=== PATIENT | female | born 1945 | race Caucasian/White ===

== ENCOUNTER 2016-04-23 21:22 | Inpatient (IN) | payer OTHER, MEDICARE ==
[~2016-04-23] VITALS: Ht 165.1 cm; Wt 78.5 kg
[2016-04-23 21:27] VITALS: BP 108/51; PULSE 62; RESP 16; TEMP 98.2; O2SAT 95
[2016-04-23] MEDS ORDERED: HYDR25TA5 PO (21:48)
[2016-04-23] MEDS ORDERED: ASPI1TAB69 PO (21:48)
[2016-04-23] MEDS ORDERED: MULT1TAB84 PO (21:48)
[2016-04-23] MEDS ORDERED: PAXI30TA7 PO (21:48)
--- NOTE | 2016-04-23 21:50 | PD ---
HPI Chief Complaint: Injury Time Seen by Provider: 21:47 Travel History International Travel<30 days: No Contact w/Intl Traveler<30days: No Traveled to known affect area: No History of Present Illness HPI 71-year-old female presents to the emergency department for evaluation of left ankle foot pain that occurred just prior to arrival. Patient states she was dancing when she felt a pain in her left ankle. The pain caused her to fall. She denies hitting her head or losing consciousness. She denies any neck pain or back pain. No chest pain or abdominal pain. No vomiting. Patient denies taking anticoagulants or having any bleeding disorders. She's been unable to walk since it occurred. PFSH Past Medical History Depression: Yes Diabetes: Yes (NO MEDS) Patient Takes Glucophage: No Diminished Hearing: Yes Hypertension: Yes Immunizations Current: Yes Tetanus Vaccination: < 5 Years Influenza Vaccination: Yes ?: Not Tubal Ligation: Yes Past Surgical History Hysterectomy: Yes Other Surgery: Yes (DISECTOMY CARPAL JUAN DAVID) Social History Alcohol Use: Yes (DAILY 2) Tobacco Use: No Substance Use: No Allergies-Medications (Allergen,Severity, Reaction): Coded Allergies: Giuseppe (Verified Allergy, Severe, Anaphylaxis, 04/23/16) Reported Meds & Prescriptions Reported Meds & Active Scripts Active Reported Aspirin 81 Mg Tabdr 81 Mg PO DAILY Multivitamin Adults (Multiple Vitamins W/ Minerals) 1 Tab 1 Tab PO DAILY Paxil (Paroxetine HCl) 30 Mg Tab 30 Mg PO DAILY Hydrochlorothiazide 25 Mg Tab 25 Mg PO DAILY Review of Systems Except as stated in HPI: all other systems reviewed are Neg Physical Exam Narrative GENERAL: Well-developed well-nourished female patient, ambulatory. Afebrile. SKIN: Warm and dry. HEAD: Normocephalic. Atraumatic. EYES: No scleral icterus. No injection or drainage. NECK: Supple, trachea midline. No JVD or lymphadenopathy. CARDIOVASCULAR: Regular rate and rhythm without murmurs, gallops, or rubs. Bilateral pedal pulses 2+. Capillary refill less than 2 seconds to the digits of the left foot. RESPIRATORY: Breath sounds equal bilaterally. No accessory muscle use. Lungs sounds are clear to auscultation. GASTROINTESTINAL: Abdomen soft, non-tender, nondistended. MUSCULOSKELETAL: No cyanosis. Patient has swelling to the left medial ankle. She has tenderness to palpation. Patient has full sensation to the distal left upper extremity. BACK: Nontender without obvious deformity. No CVA tenderness. Patient has full rotation of the cervical spine without pain or stiffness. Data Data Last Documented VS Vital Signs Date Time Temp Pulse Resp B/P Pulse Ox O2 Delivery O2 Flow Rate FiO2 04/23/16 21:43 04/23/16 21:27 98.2 62 16 95 Room Air Orders Acetamin-Hydrocod 325-5 Mg ([place] 5-325 (04/23/16 22:30) Foot, Limited (2vws) (04/23/16 ) Ankle, Limited (Ap&Lat) (04/23/16 ) Complete Blood Count With Diff (04/23/16 22:50) Comprehensive Metabolic Panel (04/23/16 22:50) Act Partial Throm Time (Ptt) (04/23/16 22:50) Prothrombin Time / Inr (Pt) (04/23/16 22:50) MDM Medical Decision Making Medical Screen Exam Complete: Yes Emergency Medical Condition: Yes Medical Record Reviewed: Yes Interpretation(s) x-ray left ankle - CONCLUSION: Fracture subluxation of the left ankle. There are distal fibula and medial malleolus fractures. There is posterolateral subluxation of tibiotalar joint. x-ray left foot - no foot fracture Differential Diagnosis Fracture versus contusion versus sprain versus dislocation Narrative Course 71-year-old female presents to the emergency department for evaluation of left ankle and foot pain that occurred while dancing. She states the pain caused her to fall. She states she had the pain before falling. She denies any other injury. X-ray left foot and left ankle are ordered and pending. X-ray of the left foot shows no fracture x-ray of the left ankle shows fracture subluxation of the left ankle. There are distal fibula and medial malleolus fractures. There is posterolateral subluxation of tibiotalar joint. Dr. Gross, orthopedist [employer] consultant was paged. I gave report to Dr. Ramesh, who resumed care and disposition of patient. Masha Jordan Apr 23, 2016 21:50
[2016-04-23] MEDS ORDERED: ACETAMINOPHEN/HYDROcodone 325 MG/5 MG TAB PO ONE (22:30)
--- NOTE | 2016-04-23 22:45 | RADHPO ---
EXAM DATE/TIME: 04/23/2016 22:33 [facility] COMPARISON: No previous studies available for comparison. INDICATIONS : Trauma, fall. Left ankle pain. MEDICAL HISTORY : None. SURGICAL HISTORY : None. ENCOUNTER: Initial ACUITY: 1 day PAIN SCORE: 10/10 LOCATION: Left ankle FINDINGS: There is a steeply oblique, moderately comminuted fracture of the distal fibula with about one shaft width of lateral displacement. There is a fracture of the medial malleolus. The medial malleolus frac ture fragment continues to articulate with the talus but the rest of the tibiotalar joint is laterall y and posteriorly subluxed. CONCLUSION: Fracture subluxation of the left ankle. There are distal fibula and medial malleolus fractures. There is posterolateral subluxation of tibiotalar joint. Maulik Lerma MD on April 23, 2016 at 22:41 Board Certified Radiologist. This report was verified electronically.
--- NOTE | 2016-04-23 22:54 | RADHPO ---
EXAM DATE/TIME: 04/23/2016 22:34 [facility] COMPARISON: ANKLE LEFT LIMITED (AP&LAT), April 23, 2016, 22:33. INDICATIONS : Trauma, fall. Left foot pain. MEDICAL HISTORY : None. SURGICAL HISTORY : None. ENCOUNTER: Initial ACUITY: 1 day PAIN SCORE: 10/10 LOCATION: Left foot FINDINGS: Two view examination of the left foot demonstrates no soft tissue swelling, dislocation, or fracture. The calcaneus is intact. Bony mineralization is normal. CONCLUSION: No foot fracture demonstrated. Maulik Lerma MD on April 23, 2016 at 22:52 Board Certified Radiologist. This report was verified electronically.
[2016-04-23] MEDS ORDERED: PROPOFOL 200 MG/20 ML AMP IV ONE (23:15)
[2016-04-23 23:20] VITALS: BP 127/74; PULSE 62; RESP 18; O2SAT 96; O2SAT 99
--- NOTE | 2016-04-23 23:34 | PD ---
Data Data Last Documented VS Vital Signs Date Time Temp Pulse Resp B/P Pulse Ox O2 Delivery O2 Flow Rate FiO2 04/23/16 21:43 04/23/16 21:27 98.2 62 16 95 Room Air Orders Acetamin-Hydrocod 325-5 Mg ([place] 5-325 (04/23/16 22:30) Foot, Limited (2vws) (04/23/16 ) Ankle, Limited (Ap&Lat) (04/23/16 ) Complete Blood Count With Diff (04/23/16 22:50) Comprehensive Metabolic Panel (04/23/16 22:50) Act Partial Throm Time (Ptt) (04/23/16 22:50) Prothrombin Time / Inr (Pt) (04/23/16 22:50) Propofol 200 Mg/20 Ml Inj (Diprivan 200 (04/23/16 23:15) Ankle, Limited (Ap&Lat) (04/23/16 ) MDM Supervised Visit with QUEENIE: No Narrative Course I was asked by Dr. Ramesh to perform procedural sedation for left ankle fracture dislocation. See procedure note. Procedures Procedure Narrative Procedural sedation: After the risks and benefits were discussed the following procedure was performed: MODERATE SEDATION: The patient was placed on a lead printer and pulse oximetry. An ambu bag and suction was immediately available at bedside. The patient was monitored by the nurse. Oxygen saturation , heart rate and blood pressure were monitored. Procedural sedation was acheived using 50 mg of propofol IV. The patient was observed until awake and alert. Procedural Sedation time in attendance was 20 minutes. Joshua Murillo MD Apr 23, 2016 23:34
[2016-04-23 23:39] LABS: AUTOMATED NEUTROPHIL # 4.1 TH/MM3 (1.8-7.7); BASOPHIL % 0.5 % (0.0-2.0); EOSINOPHIL # 0.1 TH/MM3 (0-0.4); EOSINOPHIL % 2.3 % (0.0-4.0); HEMATOCRIT 43.3 % (35.0-46.0); HEMO FLAGS DIFF FINAL; LYMPH % 26.7 % (9.0-44.0); LYMPHOCYTE # 1.7 TH/MM3 (1.0-4.8); MEAN CELL VOLUME 92.1 FL (80.0-100.0); MEAN CORPUSCULAR HEMOGLOBIN 32.1 PG (27.0-34.0); MEAN CORPUSCULAR HGB CONC 34.8 % (32.0-36.0); MONO % 8.5 % (0.0-8.0); PLATELET COUNT 137 TH/MM3 (150-450); RED CELL DISTRIBUTION WIDTH 12.2 % (11.6-17.2); WHITE BLOOD COUNT 6.4 TH/MM3 (4.0-11.0)
[2016-04-23 23:45] LABS: CHLORIDE 104 MEQ/L (98-107); POTASSIUM 3.5 MEQ/L (3.5-5.1); SODIUM (NA) 141 MEQ/L (136-145)
--- NOTE | 2016-04-23 23:48 | RADHPO ---
EXAM DATE/TIME: 04/23/2016 23:38 [facility] COMPARISON: FOOT LEFT LIMITED (2VWS), April 23, 2016, 22:34. ANKLE LEFT LIMITED (AP&LAT), April 23, 2016, 22:33. INDICATIONS : Post reduction, left ankle. MEDICAL HISTORY : None. SURGICAL HISTORY : None. ENCOUNTER: Initial ACUITY: 1 day PAIN SCORE: 10/10 LOCATION: Left ankle FINDINGS: Two view exam was performed of the left ankle. There is much better alignment of the ankle mortise wi th just widening medially along the talar dome. Oblique fibular fracture is much better aligned as we ll CONCLUSION: Much better alignment of the fractures Bon Johnson MD on April 23, 2016 at 23:45 Board Certified Radiologist. This report was verified electronically.
[2016-04-23 23:49] LABS: ANION GAP 12 MEQ/L (5-15); BICARBONATE 24.7 MEQ/L (21.0-32.0); BLOOD UREA NITROGEN 14 MG/DL (7-18)
--- NOTE | 2016-04-23 23:49 | PD ---
Physical Exam Date Seen by Provider: Apr 23, 2016 Time Seen by Provider: 23:00 Narrative accepted in transfer of care from Masha Jordan PA-C GENERAL: Well-nourished female in no acute distress no respiratory distress GCS 15 SKIN: Warm and dry. HEAD: Normocephalic. EYES: No scleral icterus. No injection or drainage. NECK: Supple, trachea midline. No JVD or lymphadenopathy. CARDIOVASCULAR: Regular rate and rhythm without murmurs, gallops, or rubs. RESPIRATORY: Breath sounds equal bilaterally. No accessory muscle use. GASTROINTESTINAL: Abdomen soft, non-tender, nondistended. MUSCULOSKELETAL: No cyanosis, left ankle medial anterior deformity with mild discoloration and decreased palpable pulse readily detected with Doppler capillary refill is mildly delayed there is no open wound or laceration superficial abrasion is noted to the dorsal lateral aspect. BACK: Nontender without obvious deformity. No CVA tenderness. Data Data Last Documented VS Vital Signs Date Time Temp Pulse Resp B/P Pulse Ox O2 Delivery O2 Flow Rate FiO2 04/23/16 21:43 04/23/16 21:27 98.2 62 16 95 Room Air Orders Acetamin-Hydrocod 325-5 Mg ([place] 5-325 (04/23/16 22:30) Foot, Limited (2vws) (04/23/16 ) Ankle, Limited (Ap&Lat) (04/23/16 ) Complete Blood Count With Diff (04/23/16 22:50) Comprehensive Metabolic Panel (04/23/16 22:50) Act Partial Throm Time (Ptt) (04/23/16 22:50) Prothrombin Time / Inr (Pt) (04/23/16 22:50) Propofol 200 Mg/20 Ml Inj (Diprivan 200 (04/23/16 23:15) Ankle, Limited (Ap&Lat) (04/23/16 ) MDM Medical Record Reviewed: Yes Supervised Visit with QUEENIE: Yes Interpretation(s) Last Impressions Foot X-Ray 04/23/16 0000 Signed Impressions: Service Date/Time: Saturday, April 23, 2016 22:34 - CONCLUSION: No foot fracture demonstrated. Maulik Lerma MD Ankle X-Ray 04/23/16 0000 Signed Impressions: Service Date/Time: Saturday, April 23, 2016 22:33 - CONCLUSION: Fracture subluxation of the left ankle. There are distal fibula and medial malleolus fractures. There is posterolateral subluxation of tibiotalar joint. Maulik Lerma MD Differential Diagnosis fracture subluxation dislocation neurovascular injury Narrative Course accepted in transfer of care from [place] Procedures Procedure Narrative After obtaining informed consent for procedural sedation and closed reduction of the left ankle fracture subluxation/dislocation; after obtaining adequate sedation with gentle distraction traction and medial flexion reduction was successfully achieved and dorsalis pedis pulse was readily palpable as well as Dopplerable with less than 2 second capillary refill to digits; sugar-tong splint with ice cuff applied. Post reduction x-ray was obtained with improved alignment noted. Physician Communication Physician Communication case discussed with screed person orthopedist, Dr Iqbal, admit to medicine with consult to Dr Hernandez in AM for surgical repair; call placed to medicine service [facility] MD Dr Ghosh Diagnosis Primary Impression: Trimalleolar fracture of ankle, closed Qualified Code: S82.852A - Trimalleolar fracture of ankle, closed, left, initial encounter Admitting Information Admitting Physician Requests: Admit Josselin Ramesh MD Apr 23, 2016 23:49
[2016-04-23 23:50] VITALS: BP 121/63; PULSE 62; RESP 18; O2SAT 97
[2016-04-23 23:50] LABS: APTT (PATIENT) 25.2 SEC (24.3-30.1); PROTHROMBIN TIME - PATIENT 10.7 SEC (9.8-11.6)
[2016-04-23 23:52] LABS: ALT (GPT) 53 U/L (10-53); AST (GOT) 29 U/L (15-37); GLOMERULAR FILTRATION RATE 61 ML/MIN (>89)
[2016-04-23 23:53] LABS: TOTAL BILIRUBIN ADULT 0.3 MG/DL (0.2-1.0)
[2016-04-23 23:54] LABS: ALKALINE PHOSPHATASE 88 U/L (45-117)
[2016-04-24] VITALS (11 sets, daily range): BP systolic 110–152; BP diastolic 58–87; PULSE 58–84; RESP 15–20; TEMP 95.7–98.3; O2SAT 94–98
[2016-04-24] MEDS ORDERED: BISACODYL 10 MG SUPP PR PRN
[2016-04-24] MEDS ORDERED: SODIUM CHLORIDE 0.9% FLUSH 5 ML FLUSH FLUSH PRN
[2016-04-24] MEDS ORDERED: ACETAMINOPHEN 325 MG TAB PO PRN
[2016-04-24] MEDS ORDERED: ONDANSETRON HCL 4 MG/2 ML VIAL IVP PRN
[2016-04-24] MEDS ORDERED: SODIUM CHLORIDE 0.9% FLUSH 5 ML FLUSH IVF PRN
[2016-04-24] MEDS ORDERED: MORPHINE SULFATE 4 MG/ML INJ IV PRN
[2016-04-24] MEDS ORDERED: PILL SPLITTER OTHER PRN (00:15)
[2016-04-24] MEDS: SODIUM CHLOR 0.9% 1000 ML INJ 1,000 ML IV SCH ×3 (00:58→19:52)
[2016-04-24] MEDS: ACETAMINOPHEN/HYDROcodone 325 MG/5 MG TAB PO PRN ×3 (00:58→18:52)
--- NOTE | 2016-04-24 02:07 | RADHPO ---
EXAM DATE/TIME: 04/24/2016 01:58 [facility] COMPARISON: No previous studies available for comparison. INDICATIONS : Evaluate for pneumonia, pneumothorax or communicable disease. Pre-op, left ankle surgery. MEDICAL HISTORY : None. SURGICAL HISTORY : None. ENCOUNTER: Initial ACUITY: 1 day PAIN SCORE: 0/10 LOCATION: Bilateral chest FINDINGS: A single view of the chest demonstrates the lungs to be symmetrically aerated without evidence of mas s, infiltrate or effusion. The cardiomediastinal contours are unremarkable. Osseous structures are intact. CONCLUSION: Normal examination. Bon Johnson MD on April 24, 2016 at 2:06 Board Certified Radiologist. This report was verified electronically.
[2016-04-24] MEDS ORDERED: INSULIN HUMAN REGULAR 1,000 UNITS/10 ML VIAL SQ PRN (04:15)
[2016-04-24] MEDS ORDERED: VANCOMYCIN HCL 1000 MG VIAL ONE (07:12)
[2016-04-24] MEDS ORDERED: GENTAMICIN SULFATE 80 MG/2 ML VIAL ONE (07:12)
[2016-04-24] MEDS ORDERED: ceFAZolin INJ 1,000 MG VIAL ONE (07:12)
[2016-04-24] MEDS ORDERED: BUPIVACAINE/EPINEPHRINE 0.25% PF 30 ML VIAL ONE (07:12)
--- NOTE | 2016-04-24 07:15 | PD.ORT.PN ---
Subjective Subjective Remarks At [facility] [employer] last night. Was dancing and had a slip and fall. She did not understand or recall how she fell. She did not hit her head and did not lose consciousness. Left ankle pain Objective Vitals Vital Signs Date Time Temp Pulse Resp B/P Pulse Ox O2 Delivery O2 Flow Rate FiO2 04/24/16 03:35 60 20 110/60 98 Nasal Cannula 2 04/24/16 03:05 59 19 118/58 97 Nasal Cannula 04/24/16 02:20 58 16 131/65 98 Nasal Cannula 04/24/16 01:58 18 04/24/16 00:50 58 18 125/62 96 Nasal Cannula 2 04/24/16 00:30 64 18 145/85 97 Nasal Cannula 2 04/24/16 00:10 58 20 119/65 96 Nasal Cannula 2 04/23/16 23:50 62 18 121/63 97 Nasal Cannula 2 04/23/16 23:26 19 04/23/16 23:20 62 18 127/74 96 Room Air 04/23/16 23:20 99 2.00 04/23/16 23:20 99 Nasal Cannula 2.00 04/23/16 23:20 99 04/23/16 23:20 96 Room Air 04/23/16 21:43 04/23/16 21:27 98.2 62 16 108/51 95 Room Air I/O 04/23/16 04/23/16 04/23/16 04/24/16 04/24/16 04/24/16 06:59 14:59 22:59 06:59 14:59 22:59 Output Total 800 ml Balance -800 ml Output Urine Total 800 ml Result Diagram: 04/23/16 2300 04/23/16 2300 Other Results Laboratory Tests Test 04/23/16 23:00 Prothrombin Time 10.7 SEC (9.8-11.6) Prothromb Time International 1.0 RATIO Ratio Imaging Last 24 hours Impressions Chest X-Ray 04/24/16 0000 Signed Impressions: Service Date/Time: Sunday, April 24, 2016 01:58 - CONCLUSION: Normal examination. Bon Johnson MD Objective Remarks Bilateral upper extremities: Full range of motion neurovascularly intact Right lower extremity: Full range of motion with intact distal pulses. Chronic neuropathy with some decreased sensation. No pain with range of motion of foot Left lower extremity: No pain with range of motion of hip or knee. She has decreased sensation distally in all her toes which are consistent with her chronic neuropathy. Splint and ice cuff intact Assessment & Plan Assessment and Plan Left trimalleolar ankle fracture Nothing by mouth Sign consents Surgery this morning with Dr. Hernandez We'll need to evaluate over the next few days if she is able to go home or go to rehabilitation. Rehabilitation likely due to 3 steps up to double wide home. She also lives alone ANGELIKA ZAVALA PA-C Apr 24, 2016 07:14
[2016-04-24] MEDS ORDERED: MIDAZOLAM HCL 2 MG/2 ML VIAL ONE (07:19)
[2016-04-24] MEDS ORDERED: fentaNYL CITRATE 250 MCG/5 ML AMP ONE (07:19)
[2016-04-24] MEDS ORDERED: FAMOTIDINE 20 MG/2 ML VIAL ONE (07:19)
[2016-04-24] MEDS ORDERED: DEXAMETHASONE SOD PHOS 4 MG/ML VIAL ONE (07:19)
[2016-04-24] MEDS ORDERED: METOCLOPRAMIDE HCL 10 MG/2 ML VIAL ONE (07:19)
[2016-04-24] MEDS ORDERED: MORPHINE SULFATE 4 MG/ML INJ IV PUSH PRN (08:45)
[2016-04-24] MEDS ORDERED: Post-op Orders (for Pharmacy) MISC XX ONE (08:45)
--- NOTE | 2016-04-24 08:49 | PD.OP ---
cc: Nayan Avalos MD Operative Report Date of Surgery: Apr 24, 2016 Preoperative Diagnosis: Left ankle trimalleolar fracture Postoperative Diagnosis: Procedure: ORIF left ankle medial malleolus and lateral malleolus fractures Anesthesia: Gen. Surgeon: Nayan Avalos Sludge Filtration Attendant(s): AZAR Busby PA-C The surgical procedure was assisted by my physician chef's assistant. My P.A. presence was necessary throughout this case for the manipulation and positioning of the surgical extremity. My P.A. was assisting me throughout the duration of this procedure. The skill set of a physician chef's assistant was medically necessary to complete this procedure. During the surgical case the blending technician was working at the back table and the physician chef's assistant was directly assisting me. Operation and Findings: Patient was seen and evaluated preoperatively and found to have a displaced left ankle trimalleolar fracture. Informed consent was obtained after a detailed discussion of risk and benefits of surgery. The operative site was marked. Patient was brought to the OR, placed on the OR table, and given IV sedation and general endotracheal anesthesia. IV antibiotics were given preoperatively. A timeout procedure was performed. The left leg was prepped with alcohol followed by Hibiclens and draped in the usual sterile fashion. Attention was turned towards the distal fibula. A four-inch incision was made over the distal fibula. The subcutaneous tissue was dissected with Bovie. The fracture site was visualized. The fracture site was cleaned with curets. The fracture was now reduced. The fracture keyed into anatomic alignment. K-wires were used to h old provisional fixation. A lag screw was placed to compress fracture. A Synthes plate was selected. The plate was provisionally held to bone with K-wires. 3.5 cortical screws were used to compress the plate to bone. Multiple screws were placed above and below the fracture. Next attention was turned towards the medial malleolus. The medial malleolus supposed through a 3 cm incision. Saphenous vein was retracted. Fracture was visualized. Fracture was cleaned with curettes. Fracture was now reduced and keyed into anatomic alignment. K wires were used to hold provisional fixation. 2 guidepins for the 4.0 cannulated screws were placed in a retrograde fashion across the fracture. Fluoroscopy was used to confirm guidepin placement. Cannulated drill was placed over the guidepin. 2 appropriate length screws were now placed. Good compression was applied. Fluoroscopy confirmed well aligned fracture with well-placed hardware. Next, attention was turned to the syndesmosis. The syndesmosis was stressed. There was no widening of the syndesmosis with external rotation of the ankle. The posterior malleolus fracture was also visualized. This was a near anatomic alignment. The posterior malleolus fracture was relatively small. Incisions were thoroughly irrigated. The subcutaneous tissue was closed with 3-0 PDS and the skin was closed with 3-0 nylon. Sterile dressings were applied. A well molded well-padded splint was applied. The patient was transferred to Recovery in stable condition. Needle and sponge counts were correct. Nayan Avalos MD Apr 24, 2016 08:49
[2016-04-24] MEDS ORDERED: SODIUM CHLORIDE 0.9% FLUSH 5 ML FLUSH IVF SCH (09:00)
[2016-04-24] MEDS ORDERED: WALKER/ADULT/FO1 MIS (09:27)
[2016-04-24] MEDS ORDERED: HYDR-3288 PO (09:27)
[2016-04-24] MEDS ORDERED: *morphine SULFATE 8 MG/ML PERIprocedure ONLY ONE (09:36)
[2016-04-24] MEDS ORDERED: *LABETALOL HCL 100 MG/20 ML VIAL PERIprocedural Use ONLY ONE (09:41)
--- NOTE | 2016-04-24 09:54 | MB ---
cc: STACI MARTINEZ DATE OF CONSULTATION: 04/24/2016 REASON FOR CONSULTATION Left ankle trimalleolar fracture. HISTORY OF PRESENT ILLNESS Radha is a 71-year-old female who was dancing at her [place] [employer] party. She twisted her ankle. She had a fall. She had immediate left ankle pain and deformity. She presented to the emergency room where x-rays revealed a displaced left ankle trimalleolar fracture. She is currently awake and alert on the orthopedic floor. Her only complaint is her left ankle. Pain is worse with movement and is improved with rest. She denies dizziness, syncope or loss of consciousness. PAST MEDICAL HISTORY ILLNESSES 1. Depression. 2. Diabetes. 3. Hypertension. SURGERIES 1. Carpal tunnel release. 2. Lumbar diskectomy. 3. Hysterectomy. ALLERGIES DIOVAN. MEDICATIONS 1. Aspirin. 2. Multivitamin. 3. Paxil. 4. Hydrochlorothiazide. SOCIAL HISTORY Patient does drink two glasses of wine a day. She denies tobacco or drug use. REVIEW OF SYSTEMS The patient denies headache, visual changes, neck pain, chest pain, shortness of breath, abdominal pain, nausea, vomiting, recent weight loss or numbness and tingling of extremities. She complains of left ankle pain. She does have some chronic back pain. She also has some diminished sensation in both feet secondary to previous lumbar spine problem. PHYSICAL EXAMINATION GENERAL: The patient is a thin 71-year-old female, in no acute distress. She is awake and alert. She is alert and oriented. x3. VITAL SIGNS: Temperature 98.1, pulse 62, respirations 18, blood pressure 121/71, O2 sat 95% on 2 liters nasal cannula. HEAD: The patient is normocephalic. Pupils are equal. NECK: Soft, nontender. Trachea is midline. CHEST: Lungs are clear. HEART: The patient has regular rate and rhythm. ABDOMEN: Soft, nontender, nondistended. EXTREMITIES: Examination of bilateral upper extremities reveals no pain with shoulder, elbow, wrist motion. She has intact sensation in all fingers. He has good cap refill in all fingers. Skin is intact. Radial pulses are palpable. Customer Care Specialist strength is +5. Examination of right leg reveals no pain with hip, knee or ankle motion. Skin is intact. Dorsalis pedis pulse is intact. Sensation is intact. Examination of left leg reveals no pain with hip or knee motion. She is diffusely tender around her ankle. She has mild swelling present. Skin is intact. She has good cap refill in the foot. X-RAYS X-rays of left ankle were reviewed, x-rays reveal a displaced left ankle trimalleolar fracture. IMPRESSION 1. Borderline diabetes. 2. Hypertension. 3. Displaced left ankle fracture. PLAN Treatment options were discussed with the patient. At this point I would recommend open reduction, internal fixation of left ankle. Risks of surgery include bleeding, infection, injuries to arteries, nerves and blood vessels, nonunion, malunion, painful hardware as well as medical complications including blood clot, stroke, heart attack and . She understands that she will need to be strictly non-weightbearing. All questions were answered. I will plan on surgery today. A mid-level provider in my office, nurse practitioner or PA, may see this patient on a follow-up basis and continue to implement the objective of this plan including: Starting or adjusting medications, injections of muscle, tendon, bursa or joints, cast application, orthotic or brace application, physical therapy, further radiographic studies including x-ray, MRI, CT, ultrasounds or bone scan, vascular studies, neurologic studies, or other specialist consultations, and proceeding with surgical management as appropriate. MD VERA Mckeon/LAURA /8:52 AM /9:27 AM
[2016-04-24] MEDS ORDERED: DO NOT ADM ANY ANTICOAGULANT DRUGS XX PRN (10:00)
[2016-04-24] MEDS: LACTATED RINGER'S 1000 ML IV SCH (11:00)
[2016-04-24] MEDS: SODIUM CHLORID 0.9% 500 ML IV SCH (11:00)
--- NOTE | 2016-04-24 11:41 | RADRPT ---
EXAM DATE/TIME: 04/24/2016 08:10 [facility] COMPARISON: ANKLE LEFT LIMITED (AP&LAT), April 23, 2016, 23:38. INDICATIONS : ORIF left ankle. MEDICAL HISTORY : None. SURGICAL HISTORY : None. ENCOUNTER: Subsequent ACUITY: 2 days PAIN SCORE: Non-responsive. LOCATION: Left ankle. FINDINGS: 4 spot intraoperative fluoroscopic views of the left ankle demonstrate 2 screws traversing the medial malleolus and lateral plate and screw fixation of the distal fibula with anatomic alignment at the a nkle mortise. CONCLUSION: Postoperative changes. Devaughn Barnett MD on April 24, 2016 at 11:39 Board Certified Radiologist. This report was verified electronically.
[2016-04-24] MEDS ORDERED: ONDANSETRON HCL 4 MG/2 ML VIAL IV PUSH ONE (12:00)
[2016-04-24] MEDS ORDERED: PROPOFOL 200 MG/20 ML AMP IV ONE (12:00)
--- NOTE | 2016-04-24 13:06 | EKG ---
Date Performed: 04/24/2016 Time Performed: 01:44:14 PTAGE: 71 years EKG: Sinus bradycardia. Right bundle branch block Abnormal ECG NO PREVIOUS TRACING DOCTOR: Katelyn Elise Interpretating Date/Time 04/24/2016 13:05:54
--- NOTE | 2016-04-24 13:26 | EKG ---
Date Performed: 04/24/2016 Time Performed: 05:46:04 PTAGE: 71 years EKG: Sinus rhythm . Right bundle branch block Since previous tracing, no significant change noted Abnormal ECG PREVIOUS TRACING : 04/24/2016 01.44 DOCTOR: Katelyn Elise Interpretating Date/Time 04/24/2016 13:25:22
[2016-04-24] MEDS: MULTIVITAMINS/MINERALS THERAPEUTIC TAB PO SCH (14:01)
[2016-04-24] MEDS: PARoxetine HCL 20 MG TAB PO SCH (14:01)
[2016-04-24] MEDS: SODIUM CHLORIDE 0.9% FLUSH 5 ML FLUSH FLUSH SCH ×2 (14:04→21:00)
--- NOTE | 2016-04-24 14:41 | HHI.HP ---
cc: Dr. Jana Haque [facility] Primary [facility] Physician Jana Haque Admission Diagnosis L trimalleolar fracture subluxation/dislocation Diagnoses: Chief Complaint: fall, left ankle pain Travel History International Travel<30 Days: No Contact w/Intl Traveler <30 Da: No Traveled to Known Affected Are: No History of Present Illness 71-year-old female with history of HTN, diet-controlled diabetes, depression, presents with left ankle pain after a fall on 04/23/16. Patient is now seen after surgery, is drowsy, but is able to stay awake to answer questions. She reports last night she was at a [employer], had 2 glasses of wine, was dancing, then felt a pain in her left ankle that caused her to fall to the floor. She states she normally dances barefoot however she bought new slippers and must have slipped and twisted her ankle. She has been unable to ambulate since then. She denies any syncope, did not hit her head. She denies any other medical complaints including no fevers/chills, headache, lightheadedness, dizziness, chest pain, shortness of breath, abdominal or urinary complaints. Upon arrival to the ER, left ankle x-ray showed fracture subluxation, distal fibula and medial malleolus fractures, posterolateral subluxation of the tibiotalar joint. In the ER, moderate sedation was given for closed reduction. Postreduction x-rays showed improvement of the alignment. Orthopedics was consulted, Dr. Avalos performed ORIF of fractures this morning 04/24/16. As above , patient is now seen post surgery, drowsy but overall doing well. Review of Systems ROS Limitations: Clinical Condition Constitutional: DENIES: Fatigue, Dizziness Endocrine: DENIES: Polydipsia, Polyuria, Polyphagia Eyes: DENIES: Blurred vision, Double Vision Ears, nose, mouth, throat: DENIES: Throat pain, Running Nose, Odynophagia Respiratory: DENIES: Cough, Shortness of breath Cardiovascular: DENIES: Chest pain, Palpitations, Syncope, Dyspnea on Exertion , Lower Extremity Edema Gastrointestinal: DENIES: Abdominal pain, Constipation, Diarrhea, Nausea, Vomiting Genitourinary: DENIES: Urinary frequency, Urgency, Dysuria Musculoskeletal: COMPLAINS OF: Joint pain, Joint Swelling, DENIES: Back pain, Neck pain Integumentary: DENIES: Pruritus, Rash Hematologic/lymphatic: DENIES: Bruising, Lymphadenopathy Immunologic/allergic: DENIES: Eczema, Urticaria Neurologic: DENIES: Abnormal gait, Headache, Localized weakness Psychiatric: DENIES: Anxiety, Depression Past Family Social History Past Medical History Hypertension Depression Diet controlled diabetes Past Surgical History Lumbar spine discectomy 20 years ago Hysterectomy Trigger finger surgery Bilateral carpal tunnel release Reported Medications Aspirin 81 Mg Tabdr 81 Mg PO DAILY Multivitamin Adults (Multiple Vitamins W/ Minerals) 1 Tab 1 Tab PO DAILY Paxil (Paroxetine HCl) 30 Mg Tab 30 Mg PO DAILY Hydrochlorothiazide 25 Mg Tab 25 Mg PO DAILY Allergies: Coded Allergies: Diovan (Verified Allergy, Severe, Anaphylaxis, 04/23/16) Active Ordered Medications Current Medications Medications (Trade) Dose Ordered Sig/Aarti Route Start Time Stop Time Status Last Admin (NS 1000 ml Inj) 1,000 ml @ 100 mls/hr Q10H IV 04/23/16 23:52 04/24/16 00:58 (NS Flush) 2 ml UNSCH PRN FLUSH 04/24/16 00:00 (NS Flush) 2 ml BID FLUSH 04/24/16 09:00 04/24/16 14:04 (Zofran Inj) 4 mg Q6H PRN IVP 04/24/16 00:00 (Dulcolax Supp) 10 mg DAILY PRN DC 04/24/16 00:00 (Tylenol) 650 mg Q6H PRN PO 04/24/16 00:00 ([place] 5-325 Mg) 1 tab Q4H PRN PO 04/24/16 00:00 04/24/16 05:35 (Morphine Inj) 2 mg Q3H PRN IV 04/24/16 00:00 04/24/16 03:28 (Theragran M Tab) 1 tab DAILY PO 04/24/16 09:00 04/24/16 14:01 (Paxil) 30 mg DAILY PO 04/24/16 09:00 04/24/16 14:01 Miscellaneous 1 ea 1 ea UNSCH PRN OTHER 1/1/17 00:15 Lactated Ringer's 1,000 ml @ 30 mls/hr Q24H IV 04/24/16 11:00 Sodium Chloride 500 ml @ 30 mls/hr [id number] IV 04/24/16 11:00 04/25/16 10:59 (Ancef 2 Gm Premix) 50 ml @ 100 mls/hr Q8H IV 04/24/16 15:00 04/24/16 15:29 ([place] 7.5-325 Mg) 1 tab Q4H PRN PO 04/24/16 08:45 ([place] 7.5-325 Mg) 2 tab Q6H PRN PO 04/24/16 08:45 (Morphine Inj) 4 mg Q3H PRN IV PUSH 04/24/16 08:45 Miscellaneous Information ALL NURSING DEPARTME... UNSCH PRN XX 04/24/16 10:00 04/25/16 09:59 Family History Mother with diabetes, 3 years ago Father in his 70s due to "organ failure" Social History Prior tobacco use, quit 30 years ago Drinks 2 glasses of wine nightly Denies illicit drug use Lives alone in a "double wide", has to go up a few stairs Physical Exam Vital Signs Vital Signs Date Time Temp Pulse Resp B/P Pulse Ox O2 Delivery O2 Flow Rate FiO2 04/24/16 10:37 96.3 84 15 144/63 95 04/24/16 09:45 98.7 90 14 137/70 95 Nasal Cannula 3 04/24/16 09:41 82 14 128/67 95 04/24/16 09:30 86 14 179/87 97 Nasal Cannula 3 04/24/16 09:16 98.9 87 14 177/91 97 Nasal Cannula 3 04/24/16 06:55 98.3 67 17 135/62 96 04/24/16 04:00 98.1 62 18 121/71 95 04/24/16 03:35 60 20 110/60 98 Nasal Cannula 2 04/24/16 03:05 59 19 118/58 97 Nasal Cannula 04/24/16 02:20 58 16 131/65 98 Nasal Cannula 04/24/16 01:58 18 04/24/16 00:50 58 18 125/62 96 Nasal Cannula 2 04/24/16 00:30 64 18 145/85 97 Nasal Cannula 2 04/24/16 00:10 58 20 119/65 96 Nasal Cannula 2 04/23/16 23:50 62 18 121/63 97 Nasal Cannula 2 04/23/16 23:26 19 04/23/16 23:20 62 18 127/74 96 Room Air 04/23/16 23:20 99 2.00 04/23/16 23:20 99 Nasal Cannula 2.00 04/23/16 23:20 99 04/23/16 23:20 96 Room Air 04/23/16 21:43 04/23/16 21:27 98.2 62 16 108/51 95 Room Air Physical Exam GENERAL: Well-nourished, well-developed pleasant female patient in NAD. Drowsy post surgery. SKIN: Warm and dry. No rash. HEAD: Normocephalic. Atraumatic. EYES: Pupils equal and round. No scleral icterus. No injection or drainage. ENT: No nasal bleeding or discharge. Mucous membranes pink and moist. NECK: Supple. Trachea midline. CARDIOVASCULAR: Regular rate and rhythm. S1, S2 noted. No murmur appreciated. RESPIRATORY: No accessory muscle use. Clear to auscultation. Breath sounds equal bilaterally. GASTROINTESTINAL: Abdomen soft, non-tender, nondistended. Normoactive bowel sounds x4. MUSCULOSKELETAL: No obvious deformities. LLE splint in place post surgery, brisk capillary refill. NEUROLOGICAL: Awake and alert. No obvious cranial nerve deficits. Motor grossly within normal limits. Moving all extremities spontaneously. Normal speech. PSYCHIATRIC: Appropriate mood and affect; insight and judgment normal. Laboratory Laboratory Tests Test 04/23/16 23:00 White Blood Count 6.4 Red Blood Count 4.70 Hemoglobin 15.1 Hematocrit 43.3 Mean Corpuscular Volume 92.1 Mean Corpuscular Hemoglobin 32.1 Mean Corpuscular Hemoglobin 34.8 Concent Red Cell Distribution Width 12.2 Platelet Count 137 Mean Platelet Volume 8.9 Neutrophils (%) (Auto) 62.0 Lymphocytes (%) (Auto) 26.7 Monocytes (%) (Auto) 8.5 Eosinophils (%) (Auto) 2.3 Basophils (%) (Auto) 0.5 Neutrophils # (Auto) 4.1 Lymphocytes # (Auto) 1.7 Monocytes # (Auto) 0.5 Eosinophils # (Auto) 0.1 Basophils # (Auto) 0.0 CBC Comment DIFF FINAL Differential Comment Prothrombin Time 10.7 Prothromb Time International 1.0 Ratio Activated Partial 25.2 Thromboplast Time Sodium Level 141 Potassium Level 3.5 Chloride Level 104 Carbon Dioxide Level 24.7 Anion Gap 12 Blood Urea Nitrogen 14 Creatinine 0.91 Estimat Glomerular Filtration 61 Rate Random Glucose 163 Calcium Level 8.7 Total Bilirubin 0.3 Aspartate Amino Transf 29 (AST/SGOT) Alanine Aminotransferase 53 (ALT/SGPT) Alkaline Phosphatase 88 Total Protein 7.4 Albumin 3.8 Result Diagram: 04/23/16 2300 04/23/16 2300 Imaging Last Impressions Chest X-Ray 04/24/16 0000 Signed Impressions: Service Date/Time: Sunday, April 24, 2016 01:58 - CONCLUSION: Normal examination. Bon Johnson MD Ankle X-Ray 04/24/16 0000 Signed Impressions: Service Date/Time: Sunday, April 24, 2016 08:10 - CONCLUSION: Postoperative changes. Devaughn Barnett MD Foot X-Ray 04/23/16 0000 Signed Impressions: Service Date/Time: Saturday, April 23, 2016 22:34 - CONCLUSION: No foot fracture demonstrated. Maulik Lerma MD Assessment and Plan Problem List: (1) Trimalleolar fracture of ankle, closed ICD Code: S82.853A Status: Acute (2) HTN (hypertension) ICD Code: I10 Status: Chronic (3) Diet-controlled diabetes mellitus ICD Code: E11.9 Status: Chronic (4) Depression ICD Code: F32.9 Status: Chronic Assessment and Plan 71-year-old female with history of HTN, diet-controlled diabetes, depression, presents with left ankle pain after a fall on 04/23/16 Left Trimalleolar Ankle Fracture: s/p fall on 04/23. Left ankle x-ray showed fracture subluxation, distal fibula and medial malleolus fractures, posterolateral subluxation of the tibiotalar joint. In the ER, moderate sedation was given for closed reduction. Ortho consulted, ORIF of fractures done today 04/[address] Avalos. Ortho recommending NWB on LLE. Needs PT/safety eval prior to discharge. Patient needs to go up few steps at home. May need rehab placement. Defer DVT prophylaxis to surgical team. Diet Controlled Diabetes: not on medications. Check HgbA1c. Monitor Accu-cheks and cover with SSI for now. Diabetic diet. Hypertension: chronic, BP fairly well controlled. Continue patient's HCTZ. Depression: chronic, continue patient's Paxil. DVT Prophylaxis: per surgical team. Written by Nereyda Gonzalez, acting as scribe for Dr. Ruffin on 04/24/16 at 11:05. The documentation accurately reflects the work performed [id number] by me, Dr. Ruffin on 04/24/16 at 11:05. Code Status Full Code Discussed Condition With Patient, RN Physician Certification 2 Midnight Certification Type: Admission for Inpatient Services Order for Inpatient Services The services are ordered in accordance with Medicare regulations or non- Medicare payer requirements, as applicable. In the case of services not specified as inpatient-only, they are appropriately provided as inpatient services in accordance with the 2-midnight benchmark. Estimated LOS (days): 2 days is the estimated time the patient will need to remain in the hospital, assuming treatment plan goals are met and no additional complications. Post-Hospital Plan: Not yet determined Problem Qualifiers (1) Trimalleolar fracture of ankle, closed: Qualified Code: S82.852A - Trimalleolar fracture of ankle, closed, left, initial encounter Nereyda Gonzalez PA-C Apr 24, 2016 14:41 Claudio Ruffin MD Apr 24, 2016 23:16
[2016-04-24] MEDS ORDERED: GLUCAGON 1 MG/ML VIAL OTHER PRN (14:45)
[2016-04-24] MEDS ORDERED: DEXTROSE 50% IN WATER 50 ML VIAL(D50) IV PUSH PRN (14:45)
[2016-04-24] MEDS ORDERED: ceFAZolin 2 GM PREMIX 50 ML IV SCH (15:00)
[2016-04-24 16:14] LABS: AUTOMATED NEUTROPHIL # 5.8 TH/MM3 (1.8-7.7); BASOPHIL % 0.1 % (0.0-2.0); EOSINOPHIL % 0.1 % (0.0-4.0); HEMATOCRIT 39.7 % (35.0-46.0); HEMO FLAGS DIFF FINAL; LYMPHOCYTE # 0.4 TH/MM3 (1.0-4.8); MEAN CELL VOLUME 92.6 FL (80.0-100.0); MEAN CORPUSCULAR HEMOGLOBIN 32.2 PG (27.0-34.0); MEAN CORPUSCULAR HGB CONC 34.8 % (32.0-36.0); MONO % 3.1 % (0.0-8.0); NEUT % 90.7 % (16.0-70.0); PLATELET COUNT 113 TH/MM3 (150-450); RED BLOOD COUNT 4.28 MIL/MM3 (4.00-5.30); RED CELL DISTRIBUTION WIDTH 13.3 % (11.6-17.2); WHITE BLOOD COUNT 6.4 TH/MM3 (4.0-11.0)
[2016-04-24 16:22] LABS: ANION GAP 9 MEQ/L (5-15); AST (GOT) 26 U/L (15-37); BICARBONATE 27.2 MEQ/L (21.0-32.0); BLOOD UREA NITROGEN 15 MG/DL (7-18); CHLORIDE 106 MEQ/L (98-107); GLOMERULAR FILTRATION RATE 57 ML/MIN (>89); POTASSIUM 3.9 MEQ/L (3.5-5.1); SODIUM (NA) 142 MEQ/L (136-145)
[2016-04-24 16:26] LABS: ALKALINE PHOSPHATASE 82 U/L (45-117); ALT (GPT) 46 U/L (10-53); TOTAL BILIRUBIN ADULT 0.3 MG/DL (0.2-1.0)
[2016-04-24] MEDS: INSULIN ASPART SUPPLEMENTAL SCALE SQ SCH ×2 (16:28→21:06)
[2016-04-24] MEDS: HYDROCHLOROTHIAZIDE 25 MG TAB PO SCH (16:38)
[2016-04-24] MEDS: ACETAMINOPHEN/HYDROcodone 325 MG/7.5 MG TAB PO PRN (22:37)
[2016-04-25] VITALS: BP 133/70; PULSE 72; RESP 16; TEMP 97.2; O2SAT 97
[2016-04-25] MEDS: SODIUM CHLORID 0.9% 500 ML IV SCH (03:40)
[2016-04-25] MEDS: ACETAMINOPHEN/HYDROcodone 325 MG/7.5 MG TAB PO PRN ×4 (05:46→20:13)
[2016-04-25] MEDS: INSULIN ASPART SUPPLEMENTAL SCALE SQ SCH ×4 (05:52→20:14)
[2016-04-25] MEDS: SODIUM CHLOR 0.9% 1000 ML INJ 1,000 ML IV SCH ×2 (05:52→15:49)
[2016-04-25 07:39] LABS: AUTOMATED NEUTROPHIL # 5.2 TH/MM3 (1.8-7.7); BASOPHIL % 0.3 % (0.0-2.0); EOSINOPHIL % 0.3 % (0.0-4.0); HEMATOCRIT 36.4 % (35.0-46.0); HEMO FLAGS DIFF FINAL; LYMPH % 15.6 % (9.0-44.0); LYMPHOCYTE # 1.1 TH/MM3 (1.0-4.8); MEAN CELL VOLUME 90.9 FL (80.0-100.0); MEAN CORPUSCULAR HEMOGLOBIN 32.1 PG (27.0-34.0); MEAN CORPUSCULAR HGB CONC 35.3 % (32.0-36.0); MONO % 10.4 % (0.0-8.0); NEUT % 73.4 % (16.0-70.0); PLATELET COUNT 105 TH/MM3 (150-450); RED BLOOD COUNT 4.01 MIL/MM3 (4.00-5.30); RED CELL DISTRIBUTION WIDTH 12.9 % (11.6-17.2); WHITE BLOOD COUNT 7.1 TH/MM3 (4.0-11.0)
[2016-04-25 08:00] VITALS: BP 134/63; PULSE 73; RESP 20; TEMP 96.2; O2SAT 98
[2016-04-25 08:07] LABS: BICARBONATE 29.7 MEQ/L (21.0-32.0); POTASSIUM 3.3 MEQ/L (3.5-5.1)
[2016-04-25] MEDS ORDERED: MAGNESIUM HYDROXIDE SUSP 30 ML CUP PO ONE (08:30)
[2016-04-25] MEDS ORDERED: POTASSIUM CHLORIDE 10 MEQ CONTROLLED RELEASE TAB PO ONE (08:30)
--- NOTE | 2016-04-25 08:35 | PD.ORT.PN ---
Subjective Post Op Day #: 1 Subjective Remarks pain under control Objective Vitals Vital Signs Date Time Temp Pulse Resp B/P Pulse Ox O2 Delivery O2 Flow Rate FiO2 04/25/16 06:47 18 04/25/16 00:00 97.2 72 16 133/70 97 04/24/16 20:00 96.9 80 18 152/87 97 04/24/16 19:52 18 04/24/16 15:31 95.7 66 15 121/62 94 04/24/16 10:37 96.3 84 15 144/63 95 04/24/16 09:45 98.7 90 14 137/70 95 Nasal Cannula 3 04/24/16 09:41 82 14 128/67 95 04/24/16 09:30 86 14 179/87 97 Nasal Cannula 3 04/24/16 09:16 98.9 87 14 177/91 97 Nasal Cannula 3 I/O 04/24/16 04/24/16 04/24/16 04/25/16 04/25/16 04/25/16 07:00 15:00 23:00 07:00 15:00 23:00 Intake Total 0 ml 1380 ml 360 ml 240 ml Output Total 800 ml 25 ml 1400 ml Balance -800 ml 1355 ml 360 ml -1160 ml Intake Oral 0 ml 480 ml 360 ml 240 ml IV Total 100 ml Other 800 ml Output Urine Total 800 ml 1400 ml Estimated Blood Loss 25 ml # Voids 2 2 2 # Bowel Movements 0 0 0 0 Result Diagram: 04/25/16 0650 04/25/16 0650 Imaging Last 24 hours Impressions Chest X-Ray 04/24/16 0000 Signed Impressions: Service Date/Time: Sunday, April 24, 2016 01:58 - CONCLUSION: Normal examination. Bon Johnson MD Objective Remarks in bed, nad splint c/d/i nvi sensation intact cap refill present Assessment & Plan Ortho Post Op Day #: 1 Problem List: Assessment and Plan s/p ORIF L ankle fx POD1 NWB maintain splint d/c planning home vs snf. patient has 3 steps at home and lives alone. pain control. f/up dr. garcia 2 weeks Claudio Farrar Apr 25, 2016 08:35
[2016-04-25] MEDS ORDERED: DOCUSATE SODIUM 50 MG/SENNA 8.6 MG TAB PO ONE (09:00)
[2016-04-25] MEDS: SODIUM CHLORIDE 0.9% FLUSH 5 ML FLUSH FLUSH SCH ×2 (09:00→20:14)
[2016-04-25] MEDS: MULTIVITAMINS/MINERALS THERAPEUTIC TAB PO SCH (10:06)
[2016-04-25] MEDS: HYDROCHLOROTHIAZIDE 25 MG TAB PO SCH (10:06)
[2016-04-25] MEDS: PARoxetine HCL 20 MG TAB PO SCH (10:06)
[2016-04-25] MEDS: LACTATED RINGER'S 1000 ML IV SCH (10:16)
[2016-04-25 12:00] VITALS: BP 160/71; PULSE 70; RESP 18; TEMP 96.5; O2SAT 95
[2016-04-25 16:00] VITALS: BP 167/69; PULSE 72; RESP 20; TEMP 97.4; O2SAT 97
[2016-04-25] MEDS ORDERED: BISACODYL 10 MG SUPP RECTAL PRN (16:15)
[2016-04-25 17:29] LABS: HEMOGLOBIN A1a 1.2 %; HEMOGLOBIN A1b 0.8 %; HEMOGLOBIN Ao 83.1 %; HEMOGLOBIN F 1.4 %; HEMOGLOBIN LA1C 2.7 %; HEMOGLOBIN P3 3.7 %
[2016-04-25 20:00] VITALS: BP 135/63; PULSE 74; RESP 17; TEMP 99; O2SAT 97
[2016-04-26] MEDS: SODIUM CHLOR 0.9% 1000 ML INJ 1,000 ML IV SCH ×2 (01:52→11:52)
[2016-04-26 01:59] VITALS: BP 173/78; PULSE 76; RESP 16; TEMP 99.4; O2SAT 94
[2016-04-26] MEDS: ACETAMINOPHEN/HYDROcodone 325 MG/7.5 MG TAB PO PRN ×3 (02:10→14:53)
[2016-04-26 04:00] VITALS: BP 141/72; PULSE 68; RESP 17; TEMP 98; O2SAT 94
[2016-04-26] MEDS: INSULIN ASPART SUPPLEMENTAL SCALE SQ SCH ×3 (06:55→16:00)
[2016-04-26 06:57] LABS: POTASSIUM 3.6 MEQ/L (3.5-5.1)
--- NOTE | 2016-04-26 07:06 | PD.ORT.PN ---
Subjective Subjective Remarks POD 2 s/p ORIF left ankle doing well. pain controlled. no complaints. Objective Vitals Vital Signs Date Time Temp Pulse Resp B/P Pulse Ox O2 Delivery O2 Flow Rate FiO2 04/26/16 04:00 98.0 68 17 141/72 94 04/26/16 01:59 99.4 76 16 173/78 94 04/25/16 20:00 99.0 74 17 135/63 97 04/25/16 16:00 97.4 72 20 167/69 97 04/25/16 12:00 96.5 70 18 160/71 95 04/25/16 08:00 96.2 73 20 134/63 98 I/O 04/25/16 04/25/16 04/25/16 04/26/16 04/26/16 04/26/16 07:00 15:00 23:00 07:00 15:00 23:00 Intake Total 240 ml 720 ml 240 ml 240 ml Output Total 1400 ml 775 ml Balance -1160 ml -55 ml 240 ml 240 ml Intake Oral 240 ml 720 ml 240 ml 240 ml Output Urine Total 1400 ml 775 ml # Voids 4 2 2 # Bowel Movements 0 2 0 Result Diagram: 04/25/16 0650 04/26/16 0550 Imaging Last 24 hours Impressions Chest X-Ray 04/24/16 0000 Signed Impressions: Service Date/Time: Sunday, April 24, 2016 01:58 - CONCLUSION: Normal examination. Bon Johnson MD Objective Remarks LLE: +short leg splint. clean and dry. itnact. NVI Assessment & Plan Assessment and Plan s/p ORIF L ankle fx POD2 NWB maintain splint d/c planning home vs snf. patient has 3 steps at home and lives alone. pain control. f/up dr. garcia 2 weeks ortho clear for discharge Edvin Fonseca Apr 26, 2016 07:06
[2016-04-26] MEDS: MULTIVITAMINS/MINERALS THERAPEUTIC TAB PO SCH (08:06)
[2016-04-26] MEDS: PARoxetine HCL 20 MG TAB PO SCH (08:06)
[2016-04-26] MEDS: HYDROCHLOROTHIAZIDE 25 MG TAB PO SCH (08:06)
[2016-04-26] MEDS: SODIUM CHLORIDE 0.9% FLUSH 5 ML FLUSH FLUSH SCH (08:06)
[2016-04-26 09:14] VITALS: BP 125/71; PULSE 74; RESP 16; TEMP 97.3; O2SAT 94
[2016-04-26] MEDS: LACTATED RINGER'S 1000 ML IV SCH (11:00)
[2016-04-26 12:12] VITALS: BP 163/76; PULSE 73; RESP 16; TEMP 96.5; O2SAT 95
--- NOTE | 2016-04-27 01:53 | HHI.PR ---
Subjective Remarks date of service 04/25/16. patient seen and examined on the morning of 04/25/16. Patient says she feels well. Pain under control. No chest pain shortness breath. No nausea or vomiting. Objective Vital Signs Date Time Temp Pulse Resp B/P Pulse Ox O2 Delivery O2 Flow Rate FiO2 04/26/16 12:12 96.5 73 16 163/76 95 04/26/16 09:14 97.3 74 16 125/71 94 04/26/16 04:00 98.0 68 17 141/72 94 04/26/16 01:59 99.4 76 16 173/78 94 I/O 04/26/16 04/26/16 04/26/16 04/27/16 04/27/16 04/27/16 06:59 14:59 22:59 06:59 14:59 22:59 Intake Total 240 ml Balance 240 ml Intake Oral 240 ml # Voids 2 # Bowel Movements 0 Result Diagram: 04/25/16 0650 04/26/16 0550 Objective Remarks GENERAL: patient sitting up in bed. Appears comfortable. Alert and oriented x3. SKIN: Warm and dry. HEAD: Normocephalic. EYES: No scleral icterus. No injection or drainage. NECK: Supple, trachea midline. No JVD. CARDIOVASCULAR: Regular rate and rhythm without murmurs, gallops, or rubs. RESPIRATORY: Breath sounds equal bilaterally. No accessory muscle use. GASTROINTESTINAL: Abdomen soft, non-tender, nondistended. MUSCULOSKELETAL: No cyanosis, or edema. postoperative ankle not examined. Peripheral perfusion intact BACK: Nontender without obvious deformity. No CVA tenderness. A/P Assessment and Plan 71-year-old female with history of HTN, diet-controlled diabetes, depression, presents with left ankle pain after a fall on 04/23/16 //Postop ORIF 04/24/16 for Left Trimalleolar Ankle Fracture: s/p fall on 04/23. Left ankle x-ray showed fracture subluxation, distal fibula and medial malleolus fractures, posterolateral subluxation of the tibiotalar joint. In the ER, moderate sedation was given for closed reduction. - Post surgical management as per surgical service - Await return of bowel function. //Hypokalemia replaced //Diet Controlled Diabetes: not on medications. - Pending HgbA1c. Monitor Accu-cheks and cover with SSI for now. Diabetic diet. //Hypertension: chronic, BP fairly well controlled. Continue patient's HCTZ. //Depression: chronic, continue patient's Paxil. //DVT Prophylaxis: per surgical team. Claudio Ruffin MD Apr 27, 2016 01:53
--- NOTE | 2016-04-27 01:58 | HHI.PR ---
Subjective Remarks date of service 04/26/16. patient seen and examined around 11 AM prior to discharge. Patient says she feels well. Has had a bowel movement. pain is controlled. Objective Vital Signs Date Time Temp Pulse Resp B/P Pulse Ox O2 Delivery O2 Flow Rate FiO2 04/26/16 12:12 96.5 73 16 163/76 95 04/26/16 09:14 97.3 74 16 125/71 94 04/26/16 04:00 98.0 68 17 141/72 94 04/26/16 01:59 99.4 76 16 173/78 94 I/O 04/26/16 04/26/16 04/26/16 04/27/16 04/27/16 04/27/16 06:59 14:59 22:59 06:59 14:59 22:59 Intake Total 240 ml Balance 240 ml Intake Oral 240 ml # Voids 2 # Bowel Movements 0 Result Diagram: 04/25/16 0650 04/26/16 0550 Objective Remarks GENERAL: patient sitting up in bed. Appears comfortable. Alert and oriented x3. SKIN: Warm and dry. HEAD: Normocephalic. EYES: No scleral icterus. No injection or drainage. NECK: Supple, trachea midline. No JVD. CARDIOVASCULAR: Regular rate and rhythm without murmurs, gallops, or rubs. RESPIRATORY: Breath sounds equal bilaterally. No accessory muscle use. GASTROINTESTINAL: Abdomen soft, non-tender, nondistended. MUSCULOSKELETAL: No cyanosis, or edema. postoperative ankle not examined. Peripheral perfusion intact. BACK: Nontender without obvious deformity. No CVA tenderness. A/P Assessment and Plan 71-year-old female with history of HTN, diet-controlled diabetes, depression, presents with left ankle pain after a fall on 04/23/16 //Postop ORIF 04/24/16 for Left Trimalleolar Ankle Fracture: s/p fall on 04/23. Left ankle x-ray showed fracture subluxation, distal fibula and medial malleolus fractures, posterolateral subluxation of the tibiotalar joint. In the ER, moderate sedation was given for closed reduction. - Post surgical management as per surgical service - Status post bowel movement. - Rehabilitation placement. //Hypokalemia. Resolved after replacement. //Diet Controlled Diabetes: not on medications. - A1c 6.3. Monitor Accu-cheks and cover with SSI for now. Diabetic diet. //Hypertension: chronic, BP fairly well controlled. Continue patient's HCTZ. //Depression: chronic, continue patient's Paxil. //DVT Prophylaxis: per surgical team. Discharge Planning discharged inpatient rehabilitation. Claudio Ruffin MD Apr 27, 2016 01:58
--- NOTE | 2016-04-27 02:00 | HHI.DS ---
Discharge Summary Admission Date Apr 24, 2016 at 00:01 Discharge Date: Apr 26, 2016 Admitting Diagnosis L trimalleolar fracture subluxation/dislocation (1) Trimalleolar fracture of ankle, closed ICD Code: S82.853A (2) HTN (hypertension) ICD Code: I10 (3) Diet-controlled diabetes mellitus ICD Code: E11.9 (4) Depression ICD Code: F32.9 Procedures ORIF of left ankle on 04/24/16. Brief History - From Admission 71-year-old female with history of HTN, diet-controlled diabetes, depression, presents with left ankle pain after a fall on 04/23/16. Patient is now seen after surgery, is drowsy, but is able to stay awake to answer questions. She reports last night she was at a [employer] republic[employer], had 2 glasses of wine, was dancing, then felt a pain in her left ankle that caused her to fall to the floor. She states she normally dances barefoot however she bought new slippers and must have slipped and twisted her ankle. She has been unable to ambulate since then. She denies any syncope, did not hit her head. She denies any other medical complaints including no fevers/chills, headache, lightheadedness, dizziness, chest pain, shortness of breath, abdominal or urinary complaints. Upon arrival to the ER, left ankle x-ray showed fracture subluxation, distal fibula and medial malleolus fractures, posterolateral subluxation of the tibiotalar joint. In the ER, moderate sedation was given for closed reduction. Postreduction x-rays showed improvement of the alignment. Orthopedics was consulted, Dr. Hernandez performed ORIF of fractures this morning 04/24/16. As above , patient is now seen post surgery, drowsy but overall doing well. CBC/BMP: 04/25/16 0650 04/26/16 0550 Significant Findings Laboratory Tests Test 04/24/16 04/25/16 04/26/16 15:38 06:50 05:50 Platelet Count 113 TH/MM3 105 TH/MM3 (150-450) (150-450) Neutrophils (%) (Auto) 90.7 % 73.4 % (16.0-70.0) (16.0-70.0) Lymphocytes (%) (Auto) 6.0 % (9.0-44.0) Lymphocytes # (Auto) 0.4 TH/MM3 (1.0-4.8) Estimat Glomerular Filtration 57 ML/MIN (>89) 78 ML/MIN (>89) 78 ML/MIN (>89) Rate Random Glucose 244 MG/DL 140 MG/DL 121 MG/DL (74-106) (74-106) (74-106) Calcium Level 8.4 MG/DL (8.5-10.1) Hemoglobin A1c 6.8 % (4.3-6.0) Monocytes (%) (Auto) 10.4 % (0.0-8.0) Potassium Level 3.3 MEQ/L (3.5-5.1) Imaging Last Impressions Chest X-Ray 04/24/16 0000 Signed Impressions: Service Date/Time: Sunday, April 24, 2016 01:58 - CONCLUSION: Normal examination. Bno Johnson MD Ankle X-Ray 04/24/16 0000 Signed Impressions: Service Date/Time: Sunday, April 24, 2016 08:10 - CONCLUSION: Postoperative changes. Devaughn Barnett MD Foot X-Ray 04/23/16 0000 Signed Impressions: Service Date/Time: Saturday, April 23, 2016 22:34 - CONCLUSION: No foot fracture demonstrated. Maulik Lerma MD Hospital Course Patient underwent ORIF of left ankle fracture by orthopedics. Patient was discharged with folding walker. Mild hypokalemia which resolved after replacement. Blood sugar, blood pressure well controlled during admission. Patient will be toe touch weightbearing, will need to follow-up with orthopedics as outpatient. 71-year-old female with history of HTN, diet-controlled diabetes, depression, presents with left ankle pain after a fall on 04/23/16 //Postop ORIF 04/24/16 for Left Trimalleolar Ankle Fracture: s/p fall on 04/23. Left ankle x-ray showed fracture subluxation, distal fibula and medial malleolus fractures, posterolateral subluxation of the tibiotalar joint. In the ER, moderate sedation was given for closed reduction. - Post surgical management as per surgical service - Status post bowel movement. - Rehabilitation placement. //Hypokalemia. Resolved after replacement. //Diet Controlled Diabetes: not on medications. - A1c 6.3. Monitor Accu-cheks and cover with SSI for now. Diabetic diet. //Hypertension: chronic, BP fairly well controlled. Continue patient's HCTZ. //Depression: chronic, continue patient's Paxil. //DVT Prophylaxis: per surgical team. Pt Condition on Discharge: Good Discharge Disposition: Rehab Inpatient Discharge Time: <= 30 minutes Discharge Instructions DIET: Follow Instructions for: Heart Healthy Diet Activities you can perform: Toe Touch Weight Bearing Other Activity Instructions: please refer to ortho activity directions Follow up Referrals: Orthopedics - 05/08/16 @ [facility] with Nayan Hernandez MD SNF/[facility]/ with [facility] New Medications: Hydrocodone-Acetaminophen ([place]) 7.5-325 mg Tab 1 TAB PO Q4H PRN PAIN #60 Ref 0 TAB Walker/Adult/Folding (Walker/Adult/Folding) 1 Mis Mis 1 EA .ROUTE DIRECTED #1 Ref 0 EA Continued Medications: Aspirin (Aspirin) 81 Mg Tabdr 81 MG PO DAILY TAB Hydrochlorothiazide (Hydrochlorothiazide) 25 Mg Tab 25 MG PO DAILY #30 Ref 0 TAB Multiple Vitamins W/ Minerals (Multivitamin Adults) 1 Tab 1 TAB PO DAILY Nutritional Supplement Ref 0 TAB Paroxetine (Paxil) 30 Mg Tab 30 MG PO DAILY #30 Ref 0 TAB Claudio Ruffin MD Apr 27, 2016 02:00
== END 2016-04-26 17:16 | DRG 494 ==
LOC: PHEFT 21:22 → PHEDA 04-24 00:01 → N06A 04-24 03:52
PROVIDERS: ADMIT Internal Medicine; ATTEND Internal Medicine
PROC: 0QSKXZZ Reposition Left Fibula, External Approach (ICD-10-PCS; 2016-04-23)
PROC: 0QSHXZZ Reposition Left Tibia, External Approach (ICD-10-PCS; 2016-04-23)
PROC: 0QSH04Z Reposition Left Tibia with Internal Fixation Device, Open Approach (ICD-10-PCS; 2016-04-24)
PROC: 0QSK04Z Reposition Left Fibula with Internal Fixation Device, Open Approach (ICD-10-PCS; principal; 2016-04-24 07:37)
DX: S82.852A Displaced trimalleolar fracture of left lower leg, initial encounter for closed fracture (principal); E11.9 Type 2 diabetes mellitus without complications; I10 Essential (primary) hypertension; F32.9 Major depressive disorder, single episode, unspecified; E87.6 Hypokalemia; K59.00 Constipation, unspecified; X50.0XXA Overexertion from strenuous movement or load, initial encounter; Y93.41 Activity, dancing; Y92.89 Other specified places as the place of occurrence of the external cause; Z87.891 Personal history of nicotine dependence
CPT/HCPCS: 71010; 73600; 73620; 76000; 80048; 80053; 82948; 83036; 85025; 85610; 85730; 93005; 94770; 96374; C1713; J0690; J1100; J1580; J1815; J2250; J2270; J2405; J2765; J3010; J3370; J7030

== ENCOUNTER 2016-11-30 20:28 | Emergency (ER) | payer MEDICARE, OTHER ==
[~2016-11-30] VITALS: Ht 165.1 cm; Wt 75.8 kg
[~2016-11-30 20:28] MED LIST: ASPI1TAB69 PO; HYDR-3288 PO; HYDR25TA5 PO; MULT1TAB84 PO; PAXI30TA7 PO; WALKER/ADULT/FO1 MIS
[2016-11-30 20:34] VITALS: BP 205/148; PULSE 60; RESP 20; TEMP 98.4; O2SAT 98
[2016-11-30] MEDS ORDERED: ASPI81CH CHEW (20:46)
[2016-11-30] MEDS ORDERED: METO50TA PO (20:48)
[2016-11-30] MEDS ORDERED: MULTTAB67 PO (20:48)
[2016-11-30 20:49] VITALS: BP 173/75; PULSE 59; RESP 18; O2SAT 98
--- NOTE | 2016-11-30 21:13 | PD ---
HPI Chief Complaint: Head Injury Time Seen by Provider: 20:53 Travel History International Travel<30 days: No Contact w/Intl Traveler<30days: No Traveled to known affect area: No History of Present Illness HPI The patient is a 71-year-old female that at approximately 4:30 this morning was rushing to the bathroom because she had diarrhea and tripped over a cord and hit her forehead and suffered minor rug abrasions on her left elbow. There was no loss of consciousness. The patient complains of a mild frontal headache. She also complains of some nausea. She denies any abdominal pain. She denies any fever. The only anticoagulant the patient is on is aspirin 81 mg. PFSH Past Medical History Hx Anticoagulant Therapy: Yes (ASA) Depression: Yes Cancer: No Cardiovascular Problems: Yes Diabetes: Yes (NO MEDS) Patient Takes Glucophage: No Diminished Hearing: Yes Endocrine: Yes Gastrointestinal Disorders: Yes Genitourinary: No Hypertension: Yes Musculoskeletal: Yes Neurologic: Yes Reproductive: No Respiratory: No Immunizations Current: Yes Migraines: Yes Tetanus Vaccination: < 5 Years Influenza Vaccination: Yes Menopausal: Yes Tubal Ligation: Yes Past Surgical History Gynecologic Surgery: Yes (HYSTERECTOMY, TUBAL LIGATION) Hysterectomy: Yes Other Surgery: Yes (DISECTOMY. BILAT CARPAL JUAN DAVID) Social History Alcohol Use: Yes (Occasionally) Tobacco Use: No Substance Use: No Allergies-Medications (Allergen,Severity, Reaction): Coded Allergies: Diovan (Verified Allergy, Severe, Anaphylaxis, 11/30/16) Reported Meds & Prescriptions Reported Meds & Active Scripts Active Reported Metoprolol Tartrate 50 Mg Tab 50 Mg PO DAILY Multiple Vitamin 1 Tab 1 Tab PO DAILY Aspirin 81 Mg Chew 81 Mg CHEW DAILY Paxil (Paroxetine HCl) 30 Mg Tab 30 Mg PO DAILY Hydrochlorothiazide 25 Mg Tab 25 Mg PO DAILY Review of Systems Except as stated in HPI: all other systems reviewed are Neg Physical Exam Narrative GENERAL: The patient is alert, oriented 3 in minimal apparent distress with her frontal headache and slight rug burn pain on the left elbow. Her vital signs show blood pressure 205/148 but otherwise normal. SKIN: Focused skin assessment warm/dry. There is a 2 cm diameter rug burn on the left elbow. This burn is very superficial. HEAD: There are several bruises on the right forehead with no associated skull deformity. There is another bruise on the left forehead without any associated skull deformity. These bruises are all about 1 cm in diameter. Normocephalic. Neither raccoon eyes nor glover sign is present. EYES: Pupils equal and round. No scleral icterus. No injection or drainage. ENT: No nasal bleeding or discharge. Mucous membranes pink and moist. There is no hemotympanum present. No blood is noted in the nose. NECK: Trachea midline. No JVD. No cervical spine tenderness or deformity is noted. CARDIOVASCULAR: Regular rate and rhythm. No murmur appreciated. RESPIRATORY: No accessory muscle use. Clear to auscultation. Breath sounds equal bilaterally. GASTROINTESTINAL: Abdomen soft, non-tender, nondistended. Hepatic and splenic margins not palpable. MUSCULOSKELETAL: No obvious deformities. No clubbing. No cyanosis. No edema. NEUROLOGICAL: Awake and alert. No obvious cranial nerve deficits. Motor grossly within normal limits. Normal speech. PSYCHIATRIC: Appropriate mood and affect; insight and judgment normal. Data Data Last Documented VS Vital Signs Date Time Temp Pulse Resp B/P Pulse Ox O2 Delivery O2 Flow Rate FiO2 11/30/16 21:55 62 18 150/87 100 Room Air 11/30/16 20:[address] Brain W/O Iv Contrast(Rout) (11/30/16 20:53) MDM Medical Decision Making Medical Screen Exam Complete: Yes Emergency Medical Condition: Yes Medical Record Reviewed: Yes Interpretation(s) The CT brain is normal. Differential Diagnosis Forehead contusion, rug mari elbow, intracranial bleed, skull fracture Narrative Course The patient has forehead contusion and rug mari to the left elbow. The nausea is probably a result of gastroenteritis, the patient does have diarrhea. Diagnosis Primary Impression: Forehead contusion Additional Impression: Abrasion of left elbow Additional Instructions: As we discussed, your CT brain is normal. I would make sure that the house is clear of cords and you can trip over if you have diarrhea. You probably have a gastroenteritis giving the diarrhea. This would account for the nausea. Disposition: 01 DISCHARGE HOME Condition: Stable Tate Palm MD Nov 30, 2016 21:13
[2016-11-30 21:55] VITALS: BP 150/87; PULSE 62; RESP 18; O2SAT 100
--- NOTE | 2016-11-30 22:10 | RADRPT ---
EXAM DATE/TIME: 11/30/2016 20:59 [facility] COMPARISON: No previous studies available for comparison. INDICATIONS : Trauma, fall. RADIATION DOSE: 62.64 CTDIvol (mGy) MEDICAL HISTORY : Hypertension. SURGICAL HISTORY : None. ENCOUNTER: Initial ACUITY: 1 day PAIN SCALE: 5/10 LOCATION: cranial TECHNIQUE: Multiple contiguous axial images were obtained of the head. Using automated exposure control and adj ustment of the mA and/or kV according to patient size, radiation dose was kept as low as reasonably a chievable to obtain optimal diagnostic quality images. DICOM format image data is available electro nically for review and comparison. FINDINGS: CEREBRUM: The ventricles are normal for age. No evidence of midline shift, mass lesion, hemorrhage or acute in farction. No extra-axial fluid collections are seen. POSTERIOR FOSSA: The cerebellum and brainstem are intact. The 4th ventricle is midline. The cerebellopontine angle i s unremarkable. EXTRACRANIAL: The visualized portion of the orbits is intact. SKULL: The calvaria is intact. No evidence of skull fracture. CONCLUSION: Normal examination. Claude Marr MD on November 30, 2016 at 22:06 Board Certified Radiologist. This report was verified electronically.
[2016-11-30 22:56] VITALS: BP 160/84
== END 2016-11-30 22:58 | disposition home or self-care (01) ==
LOC: PHED 20:28
DX: S00.83XA Contusion of other part of head, initial encounter (principal); S50.312A Abrasion of left elbow, initial encounter; R11.0 Nausea; R19.7 Diarrhea, unspecified; E11.9 Type 2 diabetes mellitus without complications; I10 Essential (primary) hypertension; H91.90 Unspecified hearing loss, unspecified ear; W01.0XXA Fall on same level from slipping, tripping and stumbling without subsequent striking against object, initial encounter; Z79.82 Long term (current) use of aspirin; Z86.59 Personal history of other mental and behavioral disorders; Z86.79 Personal history of other diseases of the circulatory system; Z87.19 Personal history of other diseases of the digestive system; Z87.39 Personal history of other diseases of the musculoskeletal system and connective tissue; Z86.69 Personal history of other diseases of the nervous system and sense organs
CPT/HCPCS: 70450; 99284

== ENCOUNTER 2017-10-04 18:36 | Observation (INO) | payer OTHER ==
[~2017-10-04] VITALS: Ht 165.1 cm; Wt 75.5 kg
[~2017-10-04 18:36] MED LIST changes: +ASPI-516 CHEW; -ASPI1TAB69 PO; -HYDR-3288 PO; +METO50TA PO; -MULT1TAB84 PO; +MULTTAB67 PO; -WALKER/ADULT/FO1 MIS
[2017-10-04 18:43] VITALS: BP 194/76; PULSE 55; RESP 16; TEMP 98.8; O2SAT 98
[2017-10-04] MEDS ORDERED: AMLO2.5T PO (18:49)
[2017-10-04] MEDS ORDERED: GLIP5TAB8 PO (18:49)
[2017-10-04 19:00] VITALS: BP 188/75; PULSE 53; RESP 18; O2SAT 95
[2017-10-04] MEDS ORDERED: METOCLOPRAMIDE INJ 10 MG in SODIUM CHLORIDE 0.9% INJ 50 ML IV ONE (19:00)
--- NOTE | 2017-10-04 19:03 | PD ---
HPI Chief Complaint: GI Complaint Time Seen by Provider: 18:45 Travel History International Travel<30 days: No Contact w/Intl Traveler<30days: No Traveled to known affect area: No History of Present Illness HPI 72yo F with PMH of DM here with c/o diaphoresis and feeling unsteady on her feet. Said she started having left sided headache and nausea and vomiting around 4pm today. Denies any fever, chest pain, sob, abdominal pain, visual changes, focal weakness or numbness. Pt has been having chronic occipital headache and primary care is trying to get outpatient MRI. Denies any fall or trauma. Do not usually have headache like this. PFSH Past Medical History Hx Anticoagulant Therapy: Yes (ASA) Depression: Yes Cancer: No Cardiovascular Problems: Yes (HTN) Diabetes: Yes Patient Takes Glucophage: No Diminished Hearing: Yes Endocrine: Yes Gastrointestinal Disorders: Yes Genitourinary: No Hypertension: Yes Implanted Vascular Access Dvce: No Musculoskeletal: Yes Neurologic: Yes Reproductive: No Respiratory: No Immunizations Current: Yes Migraines: Yes Tetanus Vaccination: Unknown ?: Not Menopausal: Yes Tubal Ligation: Yes Past Surgical History Gynecologic Surgery: Yes (HYSTERECTOMY, TUBAL LIGATION) Hysterectomy: Yes Tonsillectomy: Yes Other Surgery: Yes (DISECTOMY. BILAT CARPAL JUAN DAVID) Social History Alcohol Use: Yes (Occasionally) Tobacco Use: No Substance Use: No Allergies-Medications (Allergen,Severity, Reaction): Coded Allergies: valsartan (Unverified Allergy, Severe, Anaphylaxis, 10/04/17) Reported Meds & Prescriptions Reported Meds & Active Scripts Active Reported Glipizide 5 Mg Tab Unknown Dose PO DAILY Take 30 minutes before a meal Amlodipine (Amlodipine Besylate) 2.5 Mg Tab Unknown Dose PO DAILY Metoprolol Tartrate 50 Mg Tab 50 Mg PO DAILY Multiple Vitamin 1 Tab 1 Tab PO DAILY Aspirin 81 Mg Chew 81 Mg CHEW DAILY Paxil (Paroxetine HCl) 30 Mg Tab 30 Mg PO DAILY Hydrochlorothiazide 25 Mg Tab 25 Mg PO DAILY Review of Systems Except as stated in HPI: all other systems reviewed are Neg Physical Exam Narrative GENERAL: 72yo F in mild distress. SKIN: Diaphoretic. HEAD: Atraumatic. Normocephalic. EYES: Pupils equal and round at 4mm bilaterally. +Horizontal nystagmus to left and right as well as vertigo nystagmus looking up. ENT: No nasal bleeding or discharge. Mucous membranes pink and moist. NECK: Trachea midline. No JVD. CARDIOVASCULAR: Regular rate and rhythm. No murmur appreciated. RESPIRATORY: No accessory muscle use. Clear to auscultation. Breath sounds equal bilaterally. GASTROINTESTINAL: Abdomen soft, non-tender, nondistended. MUSCULOSKELETAL: No obvious deformities. No clubbing. No cyanosis. No edema. NEUROLOGICAL: Awake and alert. No obvious cranial nerve deficits. Motor grossly within normal limits in all extremities. Sensation intact. Normal speech. PSYCHIATRIC: Appropriate mood and affect; insight and judgment normal. Data Data Last Documented VS Vital Signs Date Time Temp Pulse Resp B/P (MAP) Pulse Ox O2 Delivery O2 Flow Rate FiO2 10/04/17 19:05 16 10/04/17 18:43 98.8 55 194/76 (115) [address] Brain W/O Iv Contrast(Rout) (10/04/17 ) Complete Blood Count With Diff (10/04/17 18:52) Basic Metabolic Panel (Bmp) (10/04/17 18:52) Prothrombin Time / Inr (Pt) (10/04/17 18:52) Act Partial Throm Time (Ptt) (10/04/17 18:52) Lipase (10/04/17 18:52) Metoclopramide Inj (Reglan Inj) (10/04/17 19:00) Electrocardiogram (10/04/17 ) Mri Brain W/O Contrast (10/04/17 ) Mra Carotids W/O Contrast (10/04/17 ) Mra Brain W/O Contrast (Cow) (10/04/17 ) Aspirin (Aspirin) (10/04/17 20:45) Potassium Chloride (Kcl) (10/04/17 20:45) Place In Observation (10/04/17 ) Vital Signs (Adult) Q2HX12,Q4H (10/04/17 20:41) Nih Stroke Scale - Nihss .Daily (10/04/17 20:41) Neuro Checks Q2HX12,Q4H (10/04/17 20:41) Notify Dr: Other (10/04/17 20:41) Remove Urinary Catheter .ONCE (10/04/17 20:41) Pt Request For Service (10/04/17 20:41) Case Management Consult (10/04/17 ) Activity Oob Ad Gissel (10/04/17 20:41) Nursing Bedside Swallow Assess .ONCE (10/04/17 20:41) Scd Bilateral/Knee High RIZWAN.QSHIFT (10/04/17 20:41) Diet Npo (10/05/17 Breakfast) Complete Blood Count With Diff (10/05/17 06:00) Hemoglobin (Hgb) A1c (10/04/17 20:41) Basic Metabolic Panel (Bmp) (10/05/17 06:00) Lipid Profile (10/05/17 06:00) Us Carotid Arteries Comp Bilat (10/04/17 ) Echo 2d Comp With Doppler (10/04/17 ) ^ Hold Medication (10/04/17 20:41) Consult Neurology (10/04/17 ) Sodium Chloride 0.9% Flush (Ns Flush) (10/04/17 21:00) Sodium Chloride 0.9% Flush (Ns Flush) (10/04/17 20:45) Sodium Chlor 0.9% 1000 Ml Inj (Ns 1000 M (10/04/17 20:41) Aspirin (Aspirin) (10/05/17 09:00) Bedside Glucose RIZWAN.CSUGAR (10/04/17 20:41) ^ Discontinue Insulin Orders (10/04/17 20:41) Low Novolog Scale (10/04/17 21:00) Dextrose 50% In Jere (Vial) Inj (D50w (Vi (10/04/17 20:45) Glucagon Inj (Glucagon Inj) (10/04/17 20:45) Supervisor Landscape / Telemetry RIZWAN.Q8H (10/04/17 20:41) Consult Stroke Navigator (10/04/17 ) Heparin Inj (Heparin Inj) (10/04/17 20:45) Admit Order (Ed Use Only) (10/04/17 20:43) Labs Laboratory Tests Test 10/04/17 19:25 White Blood Count 8.2 TH/MM3 Red Blood Count 4.66 MIL/MM3 Hemoglobin 15.2 GM/DL Hematocrit 44.0 % Mean Corpuscular Volume 94.3 FL Mean Corpuscular Hemoglobin 32.7 PG Mean Corpuscular Hemoglobin Concent 34.6 % Red Cell Distribution Width 12.1 % Platelet Count 116 TH/MM3 Mean Platelet Volume 8.8 FL Neutrophils (%) (Auto) 82.2 % Lymphocytes (%) (Auto) 11.3 % Monocytes (%) (Auto) 5.3 % Eosinophils (%) (Auto) 0.7 % Basophils (%) (Auto) 0.5 % Neutrophils # (Auto) 6.8 TH/MM3 Lymphocytes # (Auto) 0.9 TH/MM3 Monocytes # (Auto) 0.4 TH/MM3 Eosinophils # (Auto) 0.1 TH/MM3 Basophils # (Auto) 0.0 TH/MM3 CBC Comment DIFF FINAL Differential Comment Prothrombin Time 10.6 SEC Prothromb Time International Ratio 1.0 RATIO Activated Partial Thromboplast Time 21.2 SEC Blood Urea Nitrogen 13 MG/DL Creatinine 0.74 MG/DL Random Glucose 191 MG/DL Calcium Level 9.5 MG/DL Sodium Level 139 MEQ/L Potassium Level 3.3 MEQ/L Chloride Level 100 MEQ/L Carbon Dioxide Level 28.5 MEQ/L Anion Gap 11 MEQ/L Estimat Glomerular Filtration Rate 77 ML/MIN Lipase 138 U/L [facility] Medical Decision Making Medical Screen Exam Complete: Yes Emergency Medical Condition: Yes Interpretation(s) EKG: Sinus bradycardia at 48bpm. RBBB. No significant ST elevation. Differential Diagnosis ICH vs. hypertensive emergency vs. vertigo Narrative Course 72yo F with c/o unsteady gait, headache, nausea, vomiting that started about 2pm today. Labs reviewed, no leukocytosis. H/H normal. Mild hypokalemia at 3.3, replaced orally. CT brain negative. Pt given zofran by [facility] but was still actively vomiting here so given reglan. Pt reevaluated after reglan and headache and nausea has resolved. However, still feels wobbly when she walks. I attempted to walk pt and she is unsteady when she turns. Pt lives by herself and even if the MRI is negative, I feel that she would not be a safe discharge tonight. I feel that with her vertigo nystagmus and unsteady gait, further evaluation is needed to r/o CVA and if negative, may need PT. Discussed with Dr. Anton and accepted to her service. Diagnosis Primary Impression: Unsteady gait Admitting Information Admitting Physician Requests: Sudha Flores DO Oct 04, 2017 19:03
--- NOTE | 2017-10-04 19:22 | RADRPT ---
EXAM DATE: 10/04/2017 7:12 PM EDT AGE/SEX: 72 years / Female INDICATIONS: Cephalgia with nausea and vomiting. CLINICAL DATA: This is the patient's initial encounter. Patient reports that signs and symptoms have been present for 1 day and indicates a pain score of 7/10. MEDICAL/SURGICAL HISTORY: Hypertension. . RADIATION DOSE: 57.64 CTDI (mGy) COMPARISON: [facility], CT BRAIN W/O CONTRAST, 11/30/2016. . TECHNIQUE: CT of the head without contrast. Using automated exposure control and adjustment of the mA and/or kV according to patient size, radiation dose was kept as low as reasonably achievable to ob tain optimal diagnostic quality images. FINDINGS: Cerebrum: The ventricles are normal for age. No evidence of midline shift, mass lesion, hemorrhage or acute infarction. No extraaxial fluid collections are seen. Posterior Fossa: The cerebellum and brainstem are intact. The 4th ventricle is midline. The cerebe llopontine angle is unremarkable. Extracranial: The visualized portion of the orbits is intact. Skull: The calvaria is intact. No evidence of skull fracture. CONCLUSION: 1. Negative CT Head non contrast. Electronically signed by: Maulik Mills MD 10/04/2017 7:21 PM EDT
[2017-10-04 19:52] LABS: AUTOMATED NEUTROPHIL # 6.8 TH/MM3 (1.8-7.7); BASOPHIL % 0.5 % (0.0-2.0); EOSINOPHIL # 0.1 TH/MM3 (0-0.4); EOSINOPHIL % 0.7 % (0.0-4.0); HEMOGLOBIN 15.2 GM/DL (11.6-15.3); LYMPH % 11.3 % (9.0-44.0); LYMPHOCYTE # 0.9 TH/MM3 (1.0-4.8); MEAN CELL VOLUME 94.3 FL (80.0-100.0); MEAN CORPUSCULAR HEMOGLOBIN 32.7 PG (27.0-34.0); MEAN CORPUSCULAR HGB CONC 34.6 % (32.0-36.0); MEAN PLATELET VOLUME 8.8 FL (7.0-11.0); MONO % 5.3 % (0.0-8.0); MONOCYTE # 0.4 TH/MM3 (0-0.9); NEUT % 82.2 % (16.0-70.0); PLATELET COUNT 116 TH/MM3 (150-450); RED BLOOD COUNT 4.66 MIL/MM3 (4.00-5.30); RED CELL DISTRIBUTION WIDTH 12.1 % (11.6-17.2); WHITE BLOOD COUNT 8.2 TH/MM3 (4.0-11.0)
[2017-10-04 20:02] LABS: CALCIUM 9.5 MG/DL (8.5-10.1)
[2017-10-04 20:03] LABS: BICARBONATE 28.5 MEQ/L (21.0-32.0)
[2017-10-04 20:05] LABS: PROTHROMBIN TIME - PATIENT 10.6 SEC (9.8-11.6)
[2017-10-04 20:06] LABS: CREATININE 0.74 MG/DL (0.50-1.00)
[2017-10-04] MEDS ORDERED: ASPIRIN 325 MG TAB PO ONE (20:45)
[2017-10-04] MEDS ORDERED: DEXTROSE 50% IN WATER 50 ML VIAL(D50) IV PUSH PRN (20:45)
[2017-10-04] MEDS ORDERED: SODIUM CHLORIDE 0.9% FLUSH 10 ML FLUSH IV FLUSH PRN (20:45)
[2017-10-04] MEDS ORDERED: POTASSIUM CHLORIDE 20 MEQ CONTROLLED RELEASE TAB PO ONE (20:45)
[2017-10-04] MEDS ORDERED: GLUCAGON 1 MG/ML VIAL OTHER PRN (20:45)
[2017-10-04] MEDS: SODIUM CHLOR 0.9% 1000 ML INJ 1,000 ML IV SCH (21:05)
[2017-10-04] MEDS: SODIUM CHLORIDE 0.9% FLUSH 10 ML FLUSH IV FLUSH SCH (21:07)
[2017-10-04] MEDS: HEPARIN SODIUM - SQ 10,000 UNITS/ML VIAL SQ SCH (21:08)
[2017-10-04] MEDS: INSULIN ASPART SUPPLEMENTAL SCALE SQ SCH (21:27)
[2017-10-04 21:30] VITALS: BP 121/65; PULSE 62; RESP 18; O2SAT 94
[2017-10-04 23:15] VITALS: BP 124/60; PULSE 54; RESP 16; O2SAT 93
[2017-10-04 23:30] VITALS: BP 124/63; PULSE 58; RESP 20; TEMP 96; O2SAT 93
[2017-10-05] VITALS (8 sets, daily range): BP systolic 129–153; BP diastolic 60–73; PULSE 55–75; RESP 15–20; TEMP 96.3–98; O2SAT 93–96
[2017-10-05 05:56] LABS: AUTOMATED NEUTROPHIL # 4.9 TH/MM3 (1.8-7.7); BASOPHIL % 0.5 % (0.0-2.0); EOSINOPHIL % 0.7 % (0.0-4.0); HEMATOCRIT 40.5 % (35.0-46.0); HEMOGLOBIN 14.4 GM/DL (11.6-15.3); LYMPH % 21.4 % (9.0-44.0); LYMPHOCYTE # 1.5 TH/MM3 (1.0-4.8); MEAN CELL VOLUME 94.6 FL (80.0-100.0); MEAN CORPUSCULAR HEMOGLOBIN 33.5 PG (27.0-34.0); MEAN CORPUSCULAR HGB CONC 35.4 % (32.0-36.0); MEAN PLATELET VOLUME 9.2 FL (7.0-11.0); MONO % 6.7 % (0.0-8.0); MONOCYTE # 0.5 TH/MM3 (0-0.9); NEUT % 70.7 % (16.0-70.0); PLATELET COUNT 120 TH/MM3 (150-450); RED BLOOD COUNT 4.29 MIL/MM3 (4.00-5.30); RED CELL DISTRIBUTION WIDTH 12.3 % (11.6-17.2); WHITE BLOOD COUNT 6.9 TH/MM3 (4.0-11.0)
[2017-10-05 06:06] LABS: BICARBONATE 28.3 MEQ/L (21.0-32.0); CALCIUM 8.9 MG/DL (8.5-10.1)
[2017-10-05 06:10] LABS: CREATININE 0.69 MG/DL (0.50-1.00)
[2017-10-05] MEDS: INSULIN ASPART SUPPLEMENTAL SCALE SQ SCH ×4 (08:00→19:57)
--- NOTE | 2017-10-05 08:51 | HHI.HP ---
[facility] Service [facility] Primary Care Physician Luis Peralta MD Admission Diagnosis CVA workup, unsteady gait Diagnoses: Chief Complaint: Diaphoresis Unsteady gait Travel History International Travel<30 Days: No Contact w/Intl Traveler <30 Da: No Traveled to Known Affected Are: No History of Present Illness This is a pleasant 72-year-old female patient with a known medical history of hypertension, diabetes who presented to the ED with complaints of diaphoresis and unsteady gait. Patient states that yesterday around 4 PM she developed a left-sided headache with associated nausea and vomiting. Patient does admit that she was unsteady on her feet as well as dizzy and just felt overall "off balance". Patient states she was talking to her sister on the phone yesterday morning and she just "did not feel herself all day". Patient did check her blood pressure yesterday which was reportedly high with systolic in the 180s. Patient also took her blood sugar because she thought that her symptoms were likely secondary to hypoglycemia and it was 130 at the time. Patient does admit to getting her blood drawn yesterday and at that time had developed lightheadedness and dizziness as well. Patient denies any recent fevers, chills , cough, chest pain, shortness of breath, abdominal pain, nausea, vomiting, diarrhea or dysuria. Patient does follow with her PCP, Dr. Peralta, has been treated for chronic occipital headaches and was planning on getting an MRI soon. She also states that she was recently placed on glipizide in June for elevated A1c, and since then she has had labile blood sugars, with occasional hypoglycemic episodes as well as blood sugars in the 200s. Patient denies falling at home or any history of trauma. CT on presentation was negative. Patient is bradycardic. With lab work essentially unremarkable. Review of Systems Constitutional: COMPLAINS OF: Diaphoretic episodes, Fatigue, DENIES: Fever, Chills Eyes: DENIES: Diplopia, Eye pain, Vision loss, Photosensitivity, Double Vision Ears, nose, mouth, throat: DENIES: Hearing loss Respiratory: DENIES: Cough, Sputum production, Shortness of breath Cardiovascular: DENIES: Chest pain, Palpitations, Syncope, Dyspnea on Exertion , Lower Extremity Edema Gastrointestinal: DENIES: Abdominal pain, Black stools, Bloody stools, Constipation, Diarrhea, Nausea, Vomiting Musculoskeletal: DENIES: Joint pain Hematologic/lymphatic: DENIES: Bruising Neurologic: COMPLAINS OF: Headache, Poor Balance, DENIES: Abnormal gait, Localized weakness, Paresthesias, Seizures, Speech Problems Psychiatric: DENIES: Anxiety Except as stated in HPI: all other systems reviewed are Neg Past Family Social History Past Medical History Hypertension Depression Diabetes History of Migraines Past Surgical History Discectomy of L5-S1 Bilateral carpal tunnel Left ankle repair with screw placement Hysterectomy Tubal ligation Tonsillectomy Reported Medications Active Reported Glipizide 5 Mg Tab Unknown Dose PO DAILY Take 30 minutes before a meal Amlodipine (Amlodipine Besylate) 2.5 Mg Tab Unknown Dose PO DAILY Metoprolol Tartrate 50 Mg Tab 50 Mg PO DAILY Multiple Vitamin 1 Tab 1 Tab PO DAILY Aspirin 81 Mg Chew 81 Mg CHEW DAILY Paxil (Paroxetine HCl) 30 Mg Tab 30 Mg PO DAILY Hydrochlorothiazide 25 Mg Tab 25 Mg PO DAILY Allergies: Coded Allergies: valsartan (Unverified Allergy, Severe, Anaphylaxis, 10/04/17) Active Ordered Medications Current Medications Medications (Trade) Dose Ordered Sig/Aarti Route Start Time Stop Time Status Last Admin (NS Flush) 2 ml BID IV FLUSH 10/04/17 21:00 10/05/17 09:17 (NS Flush) 2 ml UNSCH PRN IV FLUSH 10/04/17 20:45 Sodium Chloride 1,000 ml @ 70 mls/hr [id number] IV 10/04/17 20:41 10/05/17 10:59 (Aspirin) 325 mg DAILY PO 10/05/17 09:00 10/05/17 09:16 (NovoLOG SUPPLEMENTAL SCALE) 1 ACHS SQ 10/04/17 21:00 10/04/17 21:27 (D50w (Vial) Inj) 50 ml UNSCH PRN IV PUSH 10/04/17 20:45 (Glucagon Inj) 1 mg UNSCH PRN OTHER 10/04/17 20:45 (Heparin Inj) 5,000 units Q12HR SQ 10/04/17 21:00 10/05/17 09:17 Family History Denies any significant family medical history. Social History Denies any tobacco abuse. Does admit to occasional alcohol use. Denies any illicit drug use. Physical Exam Vital Signs Vital Signs Date Time Temp Pulse Resp B/P (MAP) Pulse Ox O2 Delivery O2 Flow Rate FiO2 10/05/17 08:50 98.0 58 16 142/60 (87) 94 10/05/17 04:00 96.6 58 18 144/64 (90) 94 10/05/17 00:01 55 10/04/17 23:30 96.0 58 20 124/63 (83) 93 10/04/17 23:20 10/04/17 23:15 54 16 124/60 (81) 93 Room Air 10/04/17 21:30 62 18 121/65 (83) 94 Room Air 10/04/17 19:05 16 10/04/17 19:00 53 18 188/75 (112) 95 Room Air 10/04/17 18:45 16 10/04/17 18:43 98.8 55 16 194/76 (115) 98 Physical Exam GENERAL: Well-developed, well-nourished patient in [facility]. SKIN: Warm and dry. No rash. HEAD: Normocephalic. Atraumatic. EYES: Pupils equal and round. No scleral icterus. No injection or drainage. ENT: No nasal bleeding or discharge. Mucous membranes pink and moist. NECK: Supple. Trachea midline. CARDIOVASCULAR: Regular rate and rhythm. S1, S2 noted. No murmur appreciated. RESPIRATORY: No accessory muscle use. Clear to auscultation. Breath sounds equal bilaterally. GASTROINTESTINAL: Abdomen soft, non-tender, nondistended. Normoactive bowel sounds x4. MUSCULOSKELETAL: No obvious deformities. Extremities without clubbing, cyanosis , or edema. NEUROLOGICAL: Awake and alert. No obvious cranial nerve deficits. Motor grossly within normal limits. 5/5 muscle strength in bilateral upper and lower extremities. Normal speech. PSYCHIATRIC: Appropriate mood and affect; insight and judgment normal. Laboratory Laboratory Tests Test 10/04/17 19:25 10/05/17 04:40 White Blood Count 8.2 6.9 Red Blood Count 4.66 4.29 Hemoglobin 15.2 14.4 Hematocrit 44.0 40.5 Mean Corpuscular Volume 94.3 94.6 Mean Corpuscular Hemoglobin 32.7 33.5 Mean Corpuscular Hemoglobin Concent 34.6 35.4 Red Cell Distribution Width 12.1 12.3 Platelet Count 116 120 Mean Platelet Volume 8.8 9.2 Neutrophils (%) (Auto) 82.2 70.7 Lymphocytes (%) (Auto) 11.3 21.4 Monocytes (%) (Auto) 5.3 6.7 Eosinophils (%) (Auto) 0.7 0.7 Basophils (%) (Auto) 0.5 0.5 Neutrophils # (Auto) 6.8 4.9 Lymphocytes # (Auto) 0.9 1.5 Monocytes # (Auto) 0.4 0.5 Eosinophils # (Auto) 0.1 0.0 Basophils # (Auto) 0.0 0.0 CBC Comment DIFF FINAL DIFF FINAL Differential Comment Prothrombin Time 10.6 Prothromb Time International Ratio 1.0 Activated Partial Thromboplast Time 21.2 Blood Urea Nitrogen 13 13 Creatinine 0.74 0.69 Random Glucose 191 134 Calcium Level 9.5 8.9 Sodium Level 139 141 Potassium Level 3.3 3.4 Chloride Level 100 104 Carbon Dioxide Level 28.5 28.3 Anion Gap 11 9 Estimat Glomerular Filtration Rate 77 84 Lipase 138 Result Diagram: 10/05/17 0440 10/05/17 0440 Imaging Last Impressions Neck Magnetic Resonance Angiography 10/05/17 0000 Signed Impressions: CONCLUSION: 1. Atretic distal left vertebral artery. 2. The right vertebral artery is widely patent. The basilar is widely patent. 3. The carotid circulations widely patent bilaterally. Percent stenosis is calculated using the diameter of the stenotic region over t he diameter of the normal distal internal carotid artery Head Magnetic Resonance Angiography 10/05/17 0000 Signed Impressions: CONCLUSION: 1. Chronic atherosclerotic disease involving multiple branches worse involving the left A1. Brain MRI 10/05/17 0000 Signed Impressions: CONCLUSION: Slight chronic small vessel ischemic and atrophic changes. Head CT 10/04/17 0000 Signed Impressions: CONCLUSION: 1. Negative CT Head non contrast. Septic Shock Reassessment Septic shock perfusion: reassessment completed Caprini VTE Risk Assessment Caprini VTE Risk Assessment: Mod/High Risk (score >= 2) Caprini Risk Assessment Model Point Value = 1 Point Value = 2 Point Value = 3 Point Value = 5 Age 41-60 Minor surgery BMI > 25 kg/m2 Swollen legs Varicose veins or History of unexplained or recurrent spontaneous Oral contraceptives or hormone replacement Sepsis (< 1 month) Serious lung disease, including pneumonia (< 1 month) Abnormal pulmonary function Acute myocardial infarction Congestive heart failure (< 1 month) History of inflammatory bowel disease Medical patient at bed rest Age 61-74 Arthroscopic surgery Major open surgery (> 45 min) Laparoscopic surgery (> 45 min) Malignancy Confined to bed (> 72 hours) Immobilizing plaster cast Central venous access Age >= 75 History of VTE Family history of VTE Factor V Leiden Prothrombin [id number] Lupus anticoagulant Anticardiolipin antibodies Elevated serum homocysteine Heparin-induced thrombocytopenia Other congenital or acquired thrombophilia Stroke (< 1 month) Elective arthroplasty Hip, pelvis, or leg fracture Acute spinal cord injury (< 1 month) Prophylaxis Regimen Total Risk Factor Score Risk Level Prophylaxis Regimen 0-1 Low Early ambulation 2 Moderate Order ONE of the following: *Sequential Compression Device (SCD) *Heparin 5000 units SQ BID 3-4 Higher Order ONE of the following medications: *Heparin 5000 units SQ TID *Enoxaparin/Lovenox 40 mg SQ daily (WT < 150 kg, CrCl > 30 mL/min) *Enoxaparin/Lovenox 30 mg SQ daily (WT < 150 kg, CrCl > 10-29 mL/min) *Enoxaparin/Lovenox 30 mg SQ BID (WT < 150 kg, CrCl > 30 mL/min) AND/OR *Sequential Compression Device (SCD) 5 or more Highest Order ONE of the following medications: *Heparin 5000 units SQ TID (Preferred with Epidurals) *Enoxaparin/Lovenox 40 mg SQ daily (WT < 150 kg, CrCl > 30 mL/min) *Enoxaparin/Lovenox 30 mg SQ daily (WT < 150 kg, CrCl > 10-29 mL/min) *Enoxaparin/Lovenox 30 mg SQ BID (WT < 150 kg, CrCl > 30 mL/min) AND *Sequential Compression Device (SCD) Assessment and Plan Problem List: (1) TIA (transient ischemic attack) ICD Code: G45.9 - Transient cerebral ischemic attack, unspecified (2) Unsteady gait ICD Code: R26.81 - Unsteadiness on feet Status: Acute (3) HTN (hypertension) ICD Code: I10 - Essential (primary) hypertension Status: Chronic Assessment and Plan This is a pleasant 72-year-old female patient with a known medical history of hypertension, diabetes who presented to the ED with complaints of diaphoresis and unsteady gait. Patient states that yesterday around 4 PM she developed a left-sided headache with associated nausea and vomiting. Transient ischemic attack, rule out CVA - Patient presented with unsteady gait. Head CT negative. - Brain MRI reviewed showing slight chronic small vessel ischemia and atrophic changes. - Head and neck MRA reviewed showing chronic changes. - Continue IV fluids. Orthostatic BP negative. - Started on daily aspirin. - CBC essentially unremarkable. - Hemoglobin A1c pending. Lipid panel showing elevated triglycerides. Will start on statin. - Neurology consulted, input and recommendations pending. - Physical therapy ordered, appreciate input recommendations. - Continue neuro checks. - Supportive care. Hypokalemia: Status post replacement. Will continue to monitor BMP. Bradycardia suspect secondary to beta-milan - Patient takes Metoprolol at home. Will hold for now. - Cardiac telemetry, monitor for any arrhythmias. Hypertension, chronic: Continue home medications. Monitor BP trends. New onset grade 1 diastolic CHF, not in exacerbation - ECHO obtained and showing adequate EF with diastolic dysfunction. - Will continue home HCTZ. Beta milan on hold now for bradycardia. DVT prophylaxis: SCDs. Heparin. Shu Reyes Oct 05, 2017 08:51
[2017-10-05] MEDS ORDERED: ASPIRIN 325 MG TAB PO SCH (09:00)
[2017-10-05] MEDS ORDERED: LORazepam 2 MG/ML VIAL IV PUSH ONE (09:00)
[2017-10-05] MEDS: SODIUM CHLORIDE 0.9% FLUSH 10 ML FLUSH IV FLUSH SCH ×2 (09:17→19:28)
[2017-10-05] MEDS: HEPARIN SODIUM - SQ 10,000 UNITS/ML VIAL SQ SCH ×2 (09:17→19:57)
[2017-10-05 10:17] LABS: CHOLESTEROL/ HDL RATIO 3.8 RATIO; HDL CHOLESTEROL 51.3 MG/DL (40.0-60.0)
[2017-10-05] MEDS: SODIUM CHLOR 0.9% 1000 ML INJ 1,000 ML IV SCH (10:59)
[2017-10-05] MEDS ORDERED: GADODIAMIDE PF 287 MG/ML 20 ML VIAL (for RAD MRI) IVCONTRAST ONE (11:19)
--- NOTE | 2017-10-05 11:28 | RADRPT ---
EXAM DATE: 10/05/2017 11:15 AM EDT AGE/SEX: 72 years / Female INDICATIONS: . Unsteady gait. CLINICAL DATA: This is the patient's subsequent encounter. Patient reports that signs and symptoms h ave been present for 2 days and indicates a pain score of 0/10. MEDICAL/SURGICAL HISTORY: Hypertension. Diabetes mellitus type II. Hysterectomy. Tubal ligati on. Carpal tunnel syndrome. COMPARISON: No prior exams available for comparison. TECHNIQUE: 20 ml Omniscan (gadodiamide) contrast infused MRA (single exam dose) of the extracranial circulation was performed using a neurovascular coil. Postprocessing was performed, including rotat ing sub-volume maximum intensity projections of each carotid artery, rotating full-volume maximum int ensity projections of both carotid arteries, sagittal and coronal sliding thin-slab reformations of e ach carotid artery, and left oblique sliding thin-slab reformation through the aortic arch to include the origin of the arch branch vessels. FINDINGS: Aortic Arch : There is a three-vessel origin of the great vessels from the aorta. No evidence of o stial narrowing. Right Carotid : The common carotid artery is intact. The carotid bulb has a normal configuration wi thout ulceration or narrowing. The internal carotid artery lumen is smooth without stenosis. The ex ternal carotid artery is intact. Left Carotid : The common carotid artery is intact. The carotid bulb has a normal configuration wit hout ulceration or narrowing. The internal carotid artery lumen is smooth without stenosis. The ext ernal carotid artery is intact. Vertebrals : The left vertebral somewhat smaller in size than the right. The right vertebral is wide ly patent throughout its course. The basilar is widely patent. CONCLUSION: 1. Atretic distal left vertebral artery. 2. The right vertebral artery is widely patent. The basilar is widely patent. 3. The carotid circulations widely patent bilaterally. Percent stenosis is calculated using the diameter of the stenotic region over the diameter of the nor mal distal internal carotid artery Electronically signed by: Sonny Carroll MD 10/05/2017 11:27 LUZMA
--- NOTE | 2017-10-05 12:36 | RADRPT ---
EXAM DATE: 10/05/2017 11:15 AM EDT AGE/SEX: 72 years / Female INDICATIONS: Unsteady gait. CLINICAL DATA: This is the patient's subsequent encounter. Patient reports that signs and symptoms h ave been present for 2 days and indicates a pain score of 0/10. MEDICAL/SURGICAL HISTORY: Hypertension. Diabetes mellitus type II. Hysterectomy. Tubal ligati on. Carpal tunnel syndrome. discectomy COMPARISON: [facility], MRA BRAIN W/O CONTRAST, 10/05/2017. [facility], CT BRAIN W/O CONTRAST, 10/04/2017. . TECHNIQUE: Multiplanar, multisequence examination of the brain was performed without contrast. FINDINGS: There is no evidence for intracranial hemorrhage, mass effect, mass lesions, or edema. The visualize d bony structures appear intact. Slight degree of brain atrophy is seen. Slight periventricular whit e matter changes are seen nonspecific mostly consistent with chronic small vessel ischemic changes. There are no signs of acute infarction for technique. There is chronic opacification of bilateral mas toid air cells. CONCLUSION: Slight chronic small vessel ischemic and atrophic changes. Electronically signed by: Salvador Carvalho MD 10/05/2017 12:35 PM EDT
--- NOTE | 2017-10-05 12:37 | RADRPT ---
EXAM DATE: 10/05/2017 11:15 AM EDT AGE/SEX: 72 years / Female INDICATIONS: Unsteady gait. CLINICAL DATA: This is the patient's subsequent encounter. Patient reports that signs and symptoms h ave been present for 2 days and indicates a pain score of 0/10. MEDICAL/SURGICAL HISTORY: Hypertension. Diabetes mellitus type II. Hysterectomy. Carpal tunne l syndrome. Tubal ligation. COMPARISON: [facility], MRI BRAIN W/O CONTRAST, 10/05/2017. [facility], CT BRAIN W/O CONTRAST, 10/04/2017. . TECHNIQUE: 3D [id number] MRA was performed. Source images, multiplanar STS MIP, and 3D volum e MIP reconstructions were reviewed. FINDINGS: There is chronic atherosclerotic disease involving multiple branches bilaterally worse involving the left A1 without definite filling defects. There is no evidence for aneurysm, vessel truncation or óscar nosis, and no evidence for vascular malformation. CONCLUSION: 1. Chronic atherosclerotic disease involving multiple branches worse involving the left A1. Electronically signed by: Salvador Carvalho MD 10/05/2017 12:36 PM EDT
--- NOTE | 2017-10-05 14:31 | ECHRPT ---
Indication: CVA/TIA CONCLUSIONS The left ventricular systolic function is normal with an estimated ejection fraction in the range of 60-65%. Mild concentric left ventricular hypertrophy. Doppler parameters are consistent with impaired left ventricular relaxtion (grade 1 diastolic dysfun ction). There is trace tricuspid valve regurgitation. BP: 144 / 64 HR: Rhythm: Sinus MEASUREMENTS (Male / Female) Normal Values Technical Quality:Fair 2D ECHO LV Diastolic Diameter PLAX 4.7 cm 4.2 - 5.9 / 3.9 - 5.3 cm LV Systolic Diameter PLAX 3.2 cm IVS Diastolic Thickness 1.0 cm 0.6 - 1.0 / 0.6 - 0.9 cm LVPW Diastolic Thickness 1.0 cm 0.6 - 1.0 / 0.6 - 0.9 cm LV Relative Wall Thickness 0.4 RV Internal Dim ED PLAX 2.0 cm LVOT Diameter 1.7 cm Aortic Root Diameter 2.8 cm LA Systolic Diameter LX 2.8 cm 3.0 - 4.0 / 2.7 - 3.8 cm M-MODE AV Cusp Separation MM 1.9 cm DOPPLER AV Peak Velocity 170.0 cm/s AV Peak Gradient 11.6 mmHg AV Mean Gradient 6.0 mmHg AV Velocity Time Integral 36.4 cm LVOT Peak Velocity 92.5 cm/s LVOT Peak Gradient 3.4 mmHg LVOT Velocity Time Integral 20.1 cm AV Area Cont Eq vti 1.3 cm AV Area Cont Eq pk 1.2 cm Mitral E Point Velocity 42.1 cm/s Mitral A Point Velocity 89.8 cm/s Mitral E to A Ratio 0.5 LV E' Lateral Velocity 11.1 cm/s Mitral E to LV E' Lateral Ratio 3.8 LV E' Septal Velocity 7.8 cm/s Mitral E to LV E' Septal Ratio 5.4 TR Peak Velocity 235.0 cm/s TR Peak Gradient 22.1 mmHg Right Atrial Pressure 10.0 mmHg Pulmonary Artery Systolic Pressu 32.1 mmHg Right Ventricular Systolic Press 32.1 mmHg PV Peak Velocity 78.2 cm/s PV Peak Gradient 2.4 mmHg FINDINGS LEFT VENTRICLE Normal left ventricular size. Mild concentric left ventricular hypertrophy. The left ventricular systolic function is normal with an estimated ejection fraction in the range of 60-65%. Doppler parameters are consistent with impaired left ventricular relaxtion (grade 1 diastolic dysfun ction). RIGHT VENTRICLE Normal right ventricular size and systolic function. LEFT ATRIUM The left atrial size is normal. RIGHT ATRIUM The right atrium is not well visualized. ATRIAL SEPTUM No atrial level shunt is demonstrated by color flow Doppler interrogation. AORTA The aortic root and proximal ascending aorta are normal in size on limited imaging. MITRAL VALVE Structurally normal mitral valve. No mitral valve stenosis or regurgitation. AORTIC VALVE Grossly normal aortic valve. No aortic valve stenosis or regurgitation. TRICUSPID VALVE Grossly normal valve. There is trace tricuspid valve regurgitation. The estimated pulmonary arterial pressure is 32.1 mmHg. PULMONARY VALVE No pulmonary valve regurgitation or stenosis. VESSELS The inferior vena cava is normal in size. PERICARDIUM No pericardial effusion. Brayden Hopper DO (Electronically Signed) Final Date:05 October 2017 14:30
[2017-10-05] MEDS ORDERED: ATOR20TA15 PO (14:48)
[2017-10-05] MEDS ORDERED: PILL SPLITTER OTHER PRN (15:00)
--- NOTE | 2017-10-05 19:11 | EKG ---
Date Performed: 10/04/2017 Time Performed: 19:15:52 PTAGE: 72 years EKG: SINUS BRADYCARDIA RIGHT BUNDLE BRANCH BLOCK ABNORMAL ECG when compared to prior EKG,patient is now bradycardic PREVIOUS TRACING : 04/24/2016 05.46 DOCTOR: Allison Chawla Interpretating Date/Time 10/05/2017 19:11:16
[2017-10-05] MEDS ORDERED: ATORVASTATIN 20 MG TAB PO SCH (21:00)
--- NOTE | 2017-10-05 21:13 | MB ---
cc: Luis Eduardo Canada MD, PhD Luis Eduardo Canada MD PhD DATE: 10/05/2017 REASON FOR CONSULTATION: Possible TIA. HISTORY OF PRESENT ILLNESS: This is a very pleasant 72-year-old female with hypertension and diabetes, who yesterday was going to the lab to get a fasting sugar, suddenly became diaphoretic and then had some profuse nausea, vomiting and then lightheadedness. She felt unsteady. Usually if she got up, she felt dizzy and off balance. She had no slurred speech, no focal weakness or numbness. She checked her sugar. It was 130. She feels back to baseline at the present time. PAST MEDICAL HISTORY: Diabetes, hypertension, depression, migraine headaches, lumbar spine surgery, carpal tunnel syndrome, left ankle surgery, hysterectomy, tubal ligation. MEDICINES AT HOME 1. Glipizide. 2. Amlodipine. 3. Metoprolol. 4. Multivitamin. 5. Aspirin. 6. Paxil. 7. Hydrochlorothiazide. ALLERGIES: VALSARTAN. NEUROLOGIC EXAMINATION: VITAL SIGNS: Blood pressure is 130/64 standing, supine 131/61, pulse is 60, respirations are 15, temperature 97.8 degrees. Higher cortical functions are normal. Cranial nerves are intact. Motor exam 5/5 strength. There is no drift. Reflexes are symmetric. IMAGING STUDIES: CT scan of the brain is within normal limits. MRI of the brain: Chronic ischemic demyelinization, no acute change. MRA of the head: chronic atherosclerosis involving several vessels, worse left A1. No large vessel occlusion. MRA neck: Carotids are patent bilaterally. The right vertebral artery is patent. Basilar is patent. There is an atretic left vertebral artery. LABORATORY DATA: The white count is 6900, hemoglobin 14.4, hematocrit 40%, platelet count 120,000. PT 10.6, INR 1, aPTT 21.2. Sodium is 141, potassium 3.4, chloride 104, CO2 of 28.3. The BUN is 13, creatinine 0.69, GFR is 84, glucose 134, triglycerides 192, cholesterol 195, LDL 105, HDL 51.3. IMPRESSION: Probable vasovagal reaction. I doubt this is a transient ischemic attack. RECOMMENDATION: Continue the low-dose aspirin. Recommend considering a statin. I would not recommend any further neurologic evaluation at the present time. Luis Eduardo Canada MD, PhD CHARITO/ , 08:55 PM , 09:11 PM
[2017-10-06] VITALS: BP 185/79; PULSE 56; RESP 14; TEMP 96.2; O2SAT 95
[2017-10-06 01:33] VITALS: BP 145/67
[2017-10-06 04:00] VITALS: BP 161/70; PULSE 54; RESP 20; TEMP 97.1; O2SAT 95
[2017-10-06 07:50] VITALS: BP 156/74; PULSE 63; RESP 18; TEMP 96.7; O2SAT 95
[2017-10-06] MEDS: INSULIN ASPART SUPPLEMENTAL SCALE SQ SCH ×2 (08:21→11:39)
[2017-10-06] MEDS: SODIUM CHLORIDE 0.9% FLUSH 10 ML FLUSH IV FLUSH SCH (08:26)
[2017-10-06] MEDS: HEPARIN SODIUM - SQ 10,000 UNITS/ML VIAL SQ SCH (08:45)
[2017-10-06] MEDS ORDERED: amLODIPine BESYLATE 5 MG TAB PO SCH ×2 (09:00)
[2017-10-06] MEDS ORDERED: ASPIRIN 81 MG CHEW TAB CHEW SCH (09:00)
[2017-10-06] MEDS ORDERED: MULTIVITAMIN TAB PO SCH (09:00)
[2017-10-06] MEDS ORDERED: HYDROCHLOROTHIAZIDE 25 MG TAB PO SCH (09:00)
[2017-10-06] MEDS ORDERED: PARoxetine HCL 20 MG TAB PO SCH (09:00)
[2017-10-06 09:48] VITALS: PULSE 66
[2017-10-06] MEDS ORDERED: LORazepam 2 MG/ML VIAL IV PUSH SCH (10:00)
[2017-10-06] MEDS ORDERED: METF500T PO (10:35)
--- NOTE | 2017-10-06 10:38 | HHI.DCPOC ---
Discharge Care Plan Diagnosis: (1) Bradycardia (2) Vasovagal reaction (3) HTN (hypertension) Goals to Promote Your Health * To prevent worsening of your condition and complications * To maintain your health at the optimal level Directions to Meet Your Goals Take your medications as prescribed Follow your dietary instruction Follow activity as directed Keep your appointments as scheduled Take your immunizations and boosters as scheduled If your symptoms worsen call your PCP, if no PCP go to Urgent Care Center or Emergency Room Smoking is Dangerous to Your Health. Avoid second hand smoke Call the 24-hour hour crisis hotline for domestic abuse at Shu Reyes Oct 06, 2017 10:38
--- NOTE | 2017-10-06 10:45 | HHI.DS ---
Discharge Summary Admission Date Oct 04, 2017 at 20:44 Discharge Date: Oct 06, 2017 Admitting Diagnosis CVA workup, unsteady gait (1) TIA (transient ischemic attack) ICD Code: G45.9 - Transient cerebral ischemic attack, unspecified (2) Unsteady gait ICD Code: R26.81 - Unsteadiness on feet Status: Acute (3) HTN (hypertension) ICD Code: I10 - Essential (primary) hypertension Status: Chronic Procedures See below. Brief History - From Admission This is a pleasant 72-year-old female patient with a known medical history of hypertension, diabetes who presented to the ED with complaints of diaphoresis and unsteady gait. Patient states that yesterday around 4 PM she developed a left-sided headache with associated nausea and vomiting. Patient does admit that she was unsteady on her feet as well as dizzy and just felt overall "off balance". Patient states she was talking to her sister on the phone yesterday morning and she just "did not feel herself all day". Patient did check her blood pressure yesterday which was reportedly high with systolic in the 180s. Patient also took her blood sugar because she thought that her symptoms were likely secondary to hypoglycemia and it was 130 at the time. Patient does admit to getting her blood drawn yesterday and at that time had developed lightheadedness and dizziness as well. Patient denies any recent fevers, chills , cough, chest pain, shortness of breath, abdominal pain, nausea, vomiting, diarrhea or dysuria. Patient does follow with her PCP, Dr. Perlata, has been treated for chronic occipital headaches and was planning on getting an MRI soon. She also states that she was recently placed on glipizide in June for elevated A1c, and since then she has had labile blood sugars, with occasional hypoglycemic episodes as well as blood sugars in the 200s. Patient denies falling at home or any history of trauma. CT on presentation was negative. Patient is bradycardic. With lab work essentially unremarkable. CBC/BMP: 10/05/17 0440 10/05/17 0440 Significant Findings Laboratory Tests Test 10/04/17 19:25 10/05/17 04:40 Platelet Count 116 TH/MM3 (150-450) 120 TH/MM3 (150-450) Neutrophils (%) (Auto) 82.2 % (16.0-70.0) 70.7 % (16.0-70.0) Lymphocytes # (Auto) 0.9 TH/MM3 (1.0-4.8) Activated Partial Thromboplast Time 21.2 SEC (24.3-30.1) Random Glucose 191 MG/DL (74-106) 134 MG/DL (74-106) Potassium Level 3.3 MEQ/L (3.5-5.1) 3.4 MEQ/L (3.5-5.1) Estimat Glomerular Filtration Rate 77 ML/MIN (>89) 84 ML/MIN (>89) Hemoglobin A1c 7.0 % (4.3-6.0) Triglycerides Level 192 MG/DL (42-150) LDL Cholesterol 105 MG/DL (0-99) Imaging Last Impressions Neck Magnetic Resonance Angiography 10/05/17 0000 Signed Impressions: CONCLUSION: 1. Atretic distal left vertebral artery. 2. The right vertebral artery is widely patent. The basilar is widely patent. 3. The carotid circulations widely patent bilaterally. Percent stenosis is calculated using the diameter of the stenotic region over t he diameter of the normal distal internal carotid artery Head Magnetic Resonance Angiography 10/05/17 0000 Signed Impressions: CONCLUSION: 1. Chronic atherosclerotic disease involving multiple branches worse involving the left A1. Brain MRI 10/05/17 0000 Signed Impressions: CONCLUSION: Slight chronic small vessel ischemic and atrophic changes. Head CT 10/04/17 0000 Signed Impressions: CONCLUSION: 1. Negative CT Head non contrast. PE at Discharge GENERAL: Well-developed, well-nourished patient in NAD. SKIN: Warm and dry. No rash. HEAD: Normocephalic. Atraumatic. EYES: Pupils equal and round. No scleral icterus. No injection or drainage. ENT: No nasal bleeding or discharge. Mucous membranes pink and moist. NECK: Supple. Trachea midline. CARDIOVASCULAR: Regular rate and rhythm. S1, S2 noted. No murmur appreciated. RESPIRATORY: No accessory muscle use. Clear to auscultation. Breath sounds equal bilaterally. GASTROINTESTINAL: Abdomen soft, non-tender, nondistended. Normoactive bowel sounds x4. MUSCULOSKELETAL: No obvious deformities. Extremities without clubbing, cyanosis , or edema. NEUROLOGICAL: Awake and alert. No obvious cranial nerve deficits. Motor grossly within normal limits. 5/5 muscle strength in bilateral upper and lower extremities. Normal speech. PSYCHIATRIC: Appropriate mood and affect; insight and judgment normal. Pt update on day of discharge Follow-up left-sided weakness and unsteady gait. Patient seen and examined walking in room. Still complains of neck pain with movement and activity. Neurology to see patient last evening, aspirin continued as well as started on statin. Patient is hypertensive this morning, metoprolol is been held secondary to bradycardia. This will be discontinued upon discharge. Patient's amlodipine increased. Patient to follow-up with PCP upon discharge. Patient has been eating well, no nausea vomiting. Vital signs stable. Afebrile. Hospital Course This is a pleasant 72-year-old female patient with a known medical history of hypertension, diabetes who presented to the ED with complaints of diaphoresis and unsteady gait. Patient states that yesterday around 4 PM she developed a left-sided headache with associated nausea and vomiting. Patient was ruled out for CVA versus transient ischemic attack. Patient presented with unsteady gait. Head CT negative. Brain MRI reviewed showing slight chronic small vessel ischemia and atrophic changes. Head and neck MRA reviewed showing chronic changes. Neurology consulted during hospitalization, continued on aspirin and started statin. No neurological intervention needed at the time. Orthostatic blood pressures negative. CBC essentially unremarkable. Hemoglobin A1c 7.0. Patient was on glipizide upon presentation, this will be discontinued, secondary to patient states that her blood sugars have been very labile with many hypoglycemic episodes at home. Patient will be started on metformin and encouraged to follow-up with PCP for management. Patient also was bradycardic during hospitalization, with the lowest at 50 bpm. She does take metoprolol 50 mg p.o. daily, this was discontinued as well, her symptoms could likely be secondary to beta-milan. Patient's amlodipine was increased due to hypertension. We did perform an echocardiogram during hospitalization, grade 1 diastolic heart failure with normal EF was seen, we continued home HCTZ. Therefore discontinued amlodipine and start on lisinopril. Physical therapy worked with patient during hospitalization, with no home health care recommended , continue use of rolling walker at home. Patient with mild hypokalemia, status post replacement. BMP stable. Patient to follow-up with PCP for management. Patient does complain of chronic neck pain, continued during hospitalization, an MRI of the cervical spine was performed. Pt Condition on Discharge: Stable Discharge Disposition: Discharge Home Discharge Time: > 30 minutes Discharge Instructions DIET: Follow Instructions for: Heart Healthy Diet, Diabetic Diet Speech Therapy-Diet Recommends: Regular Activities you can perform: Regular-No Restrictions Follow up Referrals: PCP Follow-up - 1 Week New Medications: Metformin (Metformin) 500 Mg Tab 500 MG PO DAILY for Blood Sugar Management for 30 Days, #30 TAB 0 Refills With a meal Amlodipine (Norvasc) 5 Mg Tab 5 MG PO DAILY for hypertension for 30 Days, #30 TAB Atorvastatin (Atorvastatin) 20 Mg Tab 20 MG PO HS for hyperlipidemia for 30 Days, #30 TAB Continued Medications: Aspirin (Aspirin) 81 Mg Chew 81 MG CHEW DAILY, TAB 0 Refills Hydrochlorothiazide (Hydrochlorothiazide) 25 Mg Tab 25 MG PO DAILY, #30 TAB 0 Refills Multiple Vitamin (Multiple Vitamin) 1 Tab 1 TAB PO DAILY for Nutritional Supplement, TAB 0 Refills Paroxetine (Paxil) 30 Mg Tab 30 MG PO DAILY, #30 TAB 0 Refills Discontinued Medications: Amlodipine (Amlodipine) 2.5 Mg Tab Unknown Dose PO DAILY for Blood Pressure Management, #30 TAB 0 Refills Glipizide (Glipizide) 5 Mg Tab Unknown Dose PO DAILY for Blood Sugar Management, #30 TAB 0 Refills Take 30 minutes before a meal Metoprolol Tartrate (Metoprolol Tartrate) 50 Mg Tab 50 MG PO DAILY, #30 TAB 0 Refills Shu Reyes Oct 06, 2017 10:45
[2017-10-06] MEDS ORDERED: LISI-519 PO (10:46)
[2017-10-06] MEDS ORDERED: LISINOPRIL 5 MG TAB PO ONE (11:30)
[2017-10-06 11:36] VITALS: BP 182/79; PULSE 65; RESP 18; TEMP 96.7; O2SAT 97
--- NOTE | 2017-10-06 13:46 | RADRPT ---
EXAM DATE: 10/06/2017 1:37 PM EDT AGE/SEX: 72 years / Female INDICATIONS: Weakness. CLINICAL DATA: This is the patient's initial encounter. Patient reports that signs and symptoms have been present for 2 days and indicates a pain score of 2/10. MEDICAL/SURGICAL HISTORY: Diabetes mellitus type II. Hypertension. Hysterectomy. Discectomy, lumbar. COMPARISON: No prior exams available for comparison. TECHNIQUE: Multiplanar, multisequence MRI examination of the cervical spine was performed without co ntrast. FINDINGS: Vertebrae: Normal vertebral body height. Homogeneous marrow signal. Alignment: Normal. Cord: Normal configuration and signal. Post Fossa: The cerebellar tonsils are normal in position. C2-C3: The thecal sac has a normal configuration. There is no evidence of disc herniation or spinal canal stenosis. The neural foramina are patent bilaterally. C3-C4: The thecal sac has a normal configuration. There is no evidence of disc herniation or spinal canal stenosis. The neural foramina are patent bilaterally. C4-C5: Mild uncinate ridging present with minimal bilateral neural foraminal encroachment. C5-C6: Very minimal uncinate ridging present with minimal spinal stenosis. C6-C7: Generalized disc bulging central to left-sided with mild spinal stenosis and minimal left lazarus ral foraminal encroachment. C7-T1: No epidural impressions seen. CONCLUSION: 1. Congenital a small spinal canal. Signal intensity in the cord is normal. 2. Mild degenerative changes. 3. [id number] spinal stenosis. Electronically signed by: Nicholas Carroll MD 10/06/2017 1:45 PM EDT
== END 2017-10-06 15:21 | disposition home or self-care (01) ==
LOC: PHED 18:36 → PHEDA 20:44 → PH3B 23:23
PROVIDERS: ADMIT Hospitalist; ATTEND Hospitalist
DX: R26.81 Unsteadiness on feet (principal); R11.2 Nausea with vomiting, unspecified; F32.9 Major depressive disorder, single episode, unspecified; I50.30 Unspecified diastolic (congestive) heart failure; I11.0 Hypertensive heart disease with heart failure; E11.649 Type 2 diabetes mellitus with hypoglycemia without coma; Z79.899 Other long term (current) drug therapy; Z79.84 Long term (current) use of oral hypoglycemic drugs; R00.1 Bradycardia, unspecified; E87.6 Hypokalemia; I25.10 Atherosclerotic heart disease of native coronary artery without angina pectoris; E78.1 Pure hyperglyceridemia; G89.29 Other chronic pain; M54.2 Cervicalgia; M48.02 Spinal stenosis, cervical region; I45.10 Unspecified right bundle-branch block; R94.31 Abnormal electrocardiogram [ECG] [EKG]
CPT/HCPCS: 70450; 70544; 70548; 70551; 72141; 80048; 80061; 82948; 83036; 83690; 85025; 85610; 85730; 93005; 93306; 96361; 96372; 96374; 96375; 96376; 97110; 97116; 97162; 99285; A9579; G0378; G8987; G8988; J1644; J1815; J2060; J2765; J7030